=== PATIENT | female | born 1985 | race Caucasian/White ===

== ENCOUNTER 2021-01-10 12:26 | Outpatient (REF) | payer MEDICAID, SELFPAY ==
--- NOTE | ~2021-01-10 | XR_ITS ---
EXAMINATION: XR ELBOW, LEFT CLINICAL INFORMATION: Left elbow pain. COMPARISON: None TECHNIQUE: AP, lateral, and oblique views of the left elbow. FINDINGS: The bones and soft tissues are normal. No fracture or joint effusion. Alignment is anatomic. Joint spaces are maintained. XR/XR elbow LT 2V IMPRESSION: Unremarkable left elbow.
== END 2021-01-10 12:27 | disposition home or self-care (01) ==
LOC: HO.XRAY 12:26
PROVIDERS: PCP Registered Nurse; Visit Provider Registered Nurse
DX: M25.522 Pain in left elbow (principal)
CPT/HCPCS: 73070

== ENCOUNTER 2021-07-15 15:59 | Emergency (ER) | payer MEDICAID, SELFPAY ==
[2021-07-15 16:30] VITALS: BP 108/62; PULSE 82; RESP 18; TEMP 36.3; O2SAT 98; BMI 22.2
== END 2021-07-15 16:47 | disposition left against medical advice (07) ==
PROVIDERS: Emergency Provider Emergency Medicine; PCP Registered Nurse
DX: J02.9 Acute pharyngitis, unspecified (principal)
CPT/HCPCS: 99281; 99282

== ENCOUNTER 2022-07-21 11:21 | Outpatient (REF) | payer MEDICAID, SELFPAY ==
--- NOTE | ~2022-07-21 | XR_ITS ---
EXAMINATION: XR CHEST CLINICAL INFORMATION: Cough COMPARISON: 06/30/2019 TECHNIQUE: 2 views of the chest were obtained. FINDINGS: No significant abnormality is noted involving the heart, lungs, mediastinum, bony thorax or soft tissues. XR/XR chest 2V IMPRESSION: Unremarkable examination.
== END 2022-07-21 11:22 | disposition home or self-care (01) ==
LOC: HO.XRAY 11:21
PROVIDERS: Visit Provider Family Medicine
DX: R05.1 Acute cough (principal)
CPT/HCPCS: 71046

== ENCOUNTER 2022-07-29 | Emergency (ER) | payer MEDICAID, SELFPAY ==
--- NOTE | ~2022-07-29 | XR_ITS ---
EXAMINATION: XR CHEST CLINICAL INFORMATION: Chest pain COMPARISON: 07/21/2022 TECHNIQUE: 2 views of the chest were obtained. FINDINGS: Lung volumes are symmetric. There is patchy airspace opacity at the left lung base, suspicious for developing consolidation in the lingula. Right lung appears well-aerated. No evidence of pneumothorax or pleural effusion. The cardiomediastinal contour is unremarkable. No acute osseous findings are seen. XR/XR chest 2V IMPRESSION: Patchy left basilar airspace opacity suspicious for lingular pneumonia in the proper clinical setting.
--- NOTE | 2022-07-29 00:06 | ECG_ITS ---
Test Reason : CHEST PAIN Blood Pressure : / mmHG Vent. Rate : 105 BPM Atrial Rate : 105 BPM P-R Int : 134 ms QRS Dur : 076 ms QT Int : 336 ms P-R-T Axes : 072 079 037 degrees QTc Int : 444 ms Sinus tachycardia Nonspecific T wave abnormality Abnormal ECG No previous ECGs available Referred By: Generic ED Physician Electronically Signed By:Carlos Kim
[2022-07-29 00:24] VITALS: BP 105/65; PULSE 106; RESP 16; TEMP 37.2; O2SAT 98; BMI 20.4
[2022-07-29 00:25] LABS: Hematocrit 34.9 % (37.0-47.0); Hemoglobin 11.9 g/dl (12.0-16.0); Mean Corpuscular HGB Conc 34.1 g/dl (31.0-35.0); Mean Corpuscular Volume 87.9 fL (80.0-98.0); Platelet Count 393 X10*3/uL (160-400); Red Blood Count 3.97 X10*6/uL (4.20-5.50); Red Cell Distribution Width 12.2 % (11.0-16.0); White Blood Count 18.8 X10*3/uL (4.8-10.8)
[2022-07-29 00:50] LABS: Alanine Aminotransferase 57 U/L (0-31); Albumin Level 4.1 g/dL (3.5-5.0); Alkaline Phosphatase 108 U/L (39-117); Anion Gap 16 (12-20); Aspartate Amino Transferase 46 U/L (5-31); Bilirubin Direct 0.2 mg/dL (0.0-0.5); Blood Urea Nitrogen 8 mg/dL (9-16); Calcium 9.2 mg/dL (8.4-10.2); Carbon Dioxide 28 mmol/L (22-29); Chloride 100 mmol/L (96-108); Creatinine Clr Calc Pharmacy 87.3; Estimated Glomerular Filt Rate > 60; Glucose Random 95 mg/dL (60-115); Lipase 24 U/L (8-78); Potassium 3.9 mmol/L (3.3-5.1); Sodium 140 mmol/L (135-145); Total Protein 7.7 g/dL (6.5-8.0)
[2022-07-29 01:17] LABS: Bilirubin Total 0.5 mg/dL (0.0-1.0)
[2022-07-29 01:31] LABS: Troponin-I High Sensitivity < 3.5 ng/L (<3.5-17.0)
[2022-07-29 03:25] VITALS: BP 100/62; PULSE 94; RESP 18; TEMP 36.6; O2SAT 100
[2022-07-29 04:30] LABS: HCG Quantitative < 2 mIU/mL
--- NOTE | 2022-07-29 04:51 | ED_ITS ---
HPI - General Adult General Chief complaint: General Medical Stated complaint: chest pain Time Seen by Provider: 07/29/22 02:56 Source: patient Mode of arrival: ambulatory History of Present Illness HPI narrative: 37-year-old female comes in with left-sided chest pain that worsened at approximately 20:00 last night, denies any nausea/vomiting/fever but reports chills and states that it is stabbing in nature and located open cuts behind her left breast?. She denies any change in pain with deep inspiration or movement and denies any recent cough or sore throat. Related Data Previous Rx's Medication Instructions Recorded doxycycline hyclate 100 mg capsule 100 mg PO BID 7 days #14 caps 07/29/22 Allergies Allergy/AdvReac Type Severity Reaction Status Date / Time No Known Allergies Allergy Unverified 04/26/20 17:17 Review of Systems Review of Systems: Pertinent positives and negatives as stated in HPI 10 point review of systems is otherwise negative. PMFSH Past Medical History Source: nursing notes reviewed Social History Social History Advance Directives: No Physical Exam ED Vital Signs: Vital Signs - 24 hr 07/29/22 00:24 07/29/22 03:25 Temperature 99 F 97.9 F Pulse Rate 106 H 94 Respiratory Rate 16 18 Blood Pressure 105/65 100/62 Pulse Oximetry 98 100 Oxygen Delivery Method Room Air Room Air BMI result Body Mass Index 20.4 VITAL SIGNS: Reviewed. GENERAL: Well developed, well nourished, in no acute distress. HEAD: Normocephalic/atraumatic EYES: PERRLA, EOMI EARS: Ext canals without abnormality, TMs non-bulging and non-erythematous NOSE: Nares patent bilateral OROPHARYNX: no oral lesions noted, posterior pharynx clear and non-erythematous without noted tonsillar enlargement/erythema/exudates NECK: Supple, no adenopathy LUNGS: Normal breath sounds. No adventitious sounds or accessory muscle use. SpO2<100>; CHEST WALL: No crepitus, no tenderness on palpation or deformity noted CARDIOVASCULAR: Regular rate and rhythm without noted murmurs, no JVD or lower extremity edema. ABDOMEN: Soft, non-tender, non-distended with bowel sounds. MUSCULOSKELETAL: No tenderness, deformities, or effusions noted on gross ins pection. EXTREMITIES: No cyanosis, clubbing or edema. SKIN: Inspection of the skin reveals no rashes NEUROLOGIC: Alert and oriented x 4. Strength and sensation to light touch were grossly intact x 4. Course Course Course Narrative: 37-year-old female with history and clinical presentation initially felt to be possible costochondritis and after review lab work there is a noted leukocytosis without significant fever and patient is oxygenating well and on obtaining chest x-ray there is evidence to suggest a left lingular pneumonia, troponin is negative and chemistries otherwise are without significant finding. Patient received initial dose of doxycycline and then was informed of all results and discharged home with remaining course of antibiotics. She also received Tylenol and ibuprofen here in the emergency room. She is neither tachypneic nor tachycardic and continues to oxygenating well on room air. Medical Decision Making Lab Data Result Diagrams: 07/29/22 00:19 07/29/22 00:19 Labs: Lab Results 07/29/22 07/29/22 07/29/22 Range/Units 00:19 00:19 00:19 WBC 18.8 H (4.8-10.8) X10*3/uL RBC 3.97 L (4.20-5.50) X10*6/uL Hgb 11.9 L (12.0-16.0) g/dl Hct 34.9 L (37.0-47.0) % MCV 87.9 (80.0-98.0) fL MCH 30.0 (27.0-33.0) pg MCHC 34.1 (31.0-35.0) g/dl RDW 12.2 (11.0-16.0) % Plt Count 393 (160-400) X10*3/uL MPV 9.0 L (9.4-12.3) fL Absolute Nucleated RBC 0.000 (0.0-0.012) X10*3/uL Nucleated RBC % (auto) 0.0 (0.0-0.2) /100WBC Sodium 140 (135-145) mmol/L Potassium 3.9 (3.3-5.1) mmol/L Chloride 100 (96-108) mmol/L Carbon Dioxide 28 (22-29) mmol/L Anion Gap 16 (12-20) BUN 8 L (9-16) mg/dL Creatinine 0.59 (0.5-1.4) mg/dL Estim Creat Clear Calc 87.3 Estimated GFR > 60 Random Glucose 95 (60-115) mg/dL Calcium 9.2 (8.4-10.2) mg/dL Total Bilirubin 0.5 (0.0-1.0) mg/dL Direct Bilirubin 0.2 (0.0-0.5) mg/dL AST 46 H (5-31) U/L ALT 57 H (0-31) U/L Alkaline Phosphatase 108 (39-117) U/L Troponin I High Sens < 3.5 (<3.5-17.0) ng/L Total Protein 7.7 (6.5-8.0) g/dL Albumin 4.1 (3.5-5.0) g/dL Lipase 24 (8-78) U/L Beta HCG, Quant < 2 mIU/mL Independent Interpretation I performed an independent interpretation of an: EKG Interpretation: Sinus tachycardia, HR-105, no STEMI, there is nonspecific T-wave abnormality, KS/QRS/QTC is within normal limits. Discharge Plan Discharge Clinical Impression: Pneumonia Patient Disposition: Home, Self-Care Instructions: Community Acquired Pneumonia (ED) Additional Instructions: 1. Complete todo el ciclo de antibi?ticos seg?n lo indicado. 2. Recomendar Tylenol/ibuprofeno de venta kamran seg?n sea necesario para controlar el dolor. 3. Realice un seguimiento con burgos proveedor de atenci?n primaria en los pr?ximos 2 a 3 d?as para shavon reevaluaci?n adicional del manejo ambulatorio. Regrese a la justice de emergencias si los s?ntomas empeoran. 1. Complete the entire course of antibiotics as ordered. 2. Recommend [id number]-[id number] Tylenol/ibuprofen as needed for pain control. 3. Follow-up with your primary care provider next 2-3 days for re-evaluation further outpatient management. Return to the ER for worsening symptoms. Prescriptions: New doxycycline hyclate 100 mg capsule 100 mg PO BID 7 Days Qty: 14 0RF Print Language: Serbian
[2022-07-29] MEDS: Acetaminophen 325 MG TABLET 975 MG PO (06:12)
[2022-07-29] MEDS: Ibuprofen 400 MG TABLET PO (06:13)
[2022-07-29] MEDS: Doxycycline Monohydrate 100 MG CAPSULE PO (06:13)
--- NOTE | 2022-07-29 06:26 | PC.NURSE ---
PT A&O,NO SOB OR CHEST PAIN. PT MEDICATED AT THIS CHARGE. DISCHARGE INSTRUCTIONS GIVEN AND REVIEWED WITH
== END 2022-07-29 06:27 | disposition home or self-care (01) ==
PROVIDERS: Emergency Provider Student in an Organized Health Care Education/Training Program
DX: J18.9 Pneumonia, unspecified organism (principal); R00.0 Tachycardia, unspecified
CPT/HCPCS: 36415; 71046; 80053; 82248; 83690; 84484; 84702; 85027; 93005; 99283; 99284

== ENCOUNTER 2022-09-26 13:46 | Outpatient (REF) | payer MEDICAID, SELFPAY ==
--- NOTE | ~2022-09-26 | US_ITS ---
EXAMINATION: US PELVIS CLINICAL INFORMATION: Pelvic and perineal pain. LMP 09/23/2022. COMPARISON: Pelvic ultrasound 12/27/2010. TECHNIQUE: Ultrasound of the pelvis is performed using both transabdominal and transvaginal transducers along with Doppler. Transvaginal imaging is performed due to inadequate visualization transabdominally. FINDINGS: Uterus: The uterus is anteverted and measures 7.9 x 4.5 x 5.7 cm. Scarring from prior noted. The double wall endometrial thickness is 5 mm. The uterus is smooth in contour and has normal myometrial echogenicity. No visible fibroid. Nabothian cysts are identified in the cervix. Adnexa: Both ovaries are visualized. There is normal color flow to the adnexa. Small volume of free fluid surrounding the right ovary. Right ovary measures 3.9 x 1.8 x 2.5 cm. Left ovary measures 2.6 x 2 x 2.4 cm. Engorged vasculature is noted in the left adnexal region. US/US pelvic and transvaginal IMPRESSION: 1. There is preserved flow to both ovaries at the moment of this examination. Ovaries are fairly symmetric in size. 2. Small volume of free fluid surrounding the right ovary is nonspecific but likely physiologic. 3. Engorged vasculature in the left adnexal region which could be seen with pelvic congestion syndrome in the appropriate clinical context.
== END 2022-09-26 13:47 | disposition home or self-care (01) ==
LOC: HO.US 13:46
PROVIDERS: PCP Advanced Practice Midwife; Visit Provider Advanced Practice Midwife
DX: R10.2 Pelvic and perineal pain (principal); N94.6 Dysmenorrhea, unspecified
CPT/HCPCS: 76830; 76856

== ENCOUNTER 2022-12-24 18:33 | Emergency (ER) | payer MEDICAID, SELFPAY ==
[2022-12-24 18:40] VITALS: BP 105/68; PULSE 81; RESP 18; TEMP 37.2; O2SAT 100; BMI 25.6
--- NOTE | 2022-12-24 18:40 | ED.EAR ---
HPI - Ear Problem General Chief complaint: Ear Problems Stated complaint: left ear pain Time Seen by Provider: 12/24/22 19:22 Source: patient Mode of arrival: ambulatory Limitations: no limitations History of Present Illness HPI Narrative: 37 yo female presents to the ER for evaluation of right ear pain and decreased hearing for the last 2 days. She also reports increased nasal congestion, runny nose. No fever or chills. No known sick contacts. No sob, cough or chest pain. No drainage from the ear. She had left over amoxicillin which she took 2 of before coming in to the ER. Complaint: ear pain and decreased hearing Location: right ear Duration: constant Severity: moderate Relieving factors: NDAIDs Exacerbating factors: chewing, position of head and palpation Context: recent illness Discharge from ear: no Associated symptoms ear: decreased hearing Treatment prior to arrival: oral analgesic Related Data Previous Rx's Medication Instructions Recorded doxycycline hyclate 100 mg capsule 100 mg PO BID 7 days #14 caps 07/29/22 amoxicillin 875 mg-potassium 1 tab PO BID #20 tabs 12/24/22 clavulanate 125 mg tablet fluticasone propionate 50 2 spray intranasal DAILY #16 grams 12/24/22 mcg/actuation nasal spray,suspension (24 Hour Allergy Relief) ibuprofen 600 mg tablet 600 mg PO Q8H PRN fever or pain 12/24/22 #20 tabs Allergies Allergy/AdvReac Type Severity Reaction Status Date / Time No Known Allergies Allergy Unverified 04/26/20 17:17 Review of Systems Review of Systems: Yes all other systems are reviewed and are negative [facility] Social History Social History Advance Directives: No Advance Directives Information Provided: No Physical Exam Vital Signs: Vital Signs: Last Vital Signs Temp 98.9 F 12/24/22 18:40 Pulse 81 12/24/22 18:40 Resp 18 12/24/22 18:40 BP 105/68 12/24/22 18:40 Pulse Ox 100 12/24/22 18:40 O2 Del Method Room Air 12/24/22 18:40 BMI result Body Mass Index 25.6 Appearance: Alert. Oriented X3. No acute distress. HEENT: normal external inspection. normal EAC and TM on the left. right EAC normal with erythema and effusion of the right TM. no mastoid tenderness bilaterally. nasal discharge is clear with erythematous turbinates. normal oropharynx. CVS: Normal heart rate and rhythm. Pulses normal. Respiratory: No respiratory distress. Skin: Skin warm and dry. Normal skin color. Normal skin turgor. No rashes. Extremities: normal inspection, no peripheral edema. Neuro: Oriented X 3. No motor deficit. No sensory deficit. Medical Decision Making Medical Decision Making [facility] Narrative: 37 yo female presenting to the ER for evaluation of right ear pain and decreased hearing x2 days. Exam c/w otitis media. Will start abx and NSAIDs for pain control. stable for d/c home. dx and tx d/w patient, all questions answered. Differential Diagnosis Differential Diagnoses: The differential diagnosis associated with the presentation includes acute otitis media, otitis externa, sinus infection, TM perforation, effusion, mastoiditis Lab Data [facility] Lab Attestation statement: I reviewed the patient's lab results. Labs: Lab Results 12/24/22 Range/Units 18:48 COVID-19 ([facility]) Negative (Negative) COVID-19 Clin Com See Note External Record Review External record reviewed: Outpatient record and Prior outpatient labs Prescription Management I considered prescription management with: Pain Medication and Antibiotic Critical Care Time Critical Care Time Critical Care Time: No Discharge Plan Discharge Clinical Impression: Otitis media Patient Disposition: Home, Self-Care Instructions: Ear Infection (ED) Additional Instructions: take the prescribed antibiotic as directed complete the entire course and do not miss any doses take the other medications prescribed as directed rest and stay hydrated drink plenty of fluids follow up with your doctor as needed If you develop new or worsening symptoms call 911 or come back to the ER for further evaluation. jose el antibi?mattie prescrito seg?n las indicaciones complete todo el curso y no se pierda ninguna dosis jose los otros medicamentos recetados seg?n las indicaciones descansa y mantente hidratado beber mucho l?quido seguimiento con burgos m?dico seg?n sea necesario Si desarrolla s?ntomas nuevos o que empeoran, llame al 911 o regrese a la justice de emergencias para shavon evaluaci?n adicional. Prescriptions: New amoxicillin-pot clavulanate 875-125 mg tablet 1 tab PO BID Qty: 20 0RF ibuprofen 600 mg tablet 600 mg PO Q8H PRN (Reason: fever or pain) Qty: 20 0RF fluticasone propionate [24 Hour Allergy Relief] 50 mcg/actuation spray,suspension 2 spray intranasal DAILY Qty: 16 0RF Rx Instructions: administer into each nostril No Action doxycycline hyclate 100 mg capsule 100 mg PO BID 7 Days Qty: 14 0RF Stand Alone Forms: Work/School Release Interventions: ED Discharge Assessment Last Done: 12/24/22 19:38 Print Language: Tongan
[2022-12-24 19:06] LABS: COVID-19 Test Negative (Negative); IDNOW Serial# 08D9AD1C
== END 2022-12-24 19:40 | disposition home or self-care (01) ==
PROVIDERS: Physician Assistant; Emergency Provider Emergency Medicine; PCP Advanced Practice Midwife
DX: H66.91 Otitis media, unspecified, right ear (principal); H92.02 Otalgia, left ear; Z20.822 Contact with and (suspected) exposure to COVID-19; Z20.828 Contact with and (suspected) exposure to other viral communicable diseases; Z79.899 Other long term (current) drug therapy
CPT/HCPCS: 87635; 99282; 99283

== ENCOUNTER 2023-04-18 04:26 | Emergency (ER) | payer MEDICAID, SELFPAY ==
--- NOTE | ~2023-04-18 | CT_ITS ---
EXAMINATION: CT ABDOMEN AND PELVIS WITHOUT CONTRAST CLINICAL INFORMATION: Diffuse abdominal pain and nausea, nausea and vomiting. COMPARISON: Ultrasound kidneys 08/14/2016. TECHNIQUE: Multidetector volumetric imaging was performed from the superior aspect of the liver through the pubic symphysis. Sagittal and coronal reformatted images were obtained on the technologist's workstation. This CT examination was performed using dose optimization techniques as appropriate, variously including the following: *Automated exposure control *Adjustment of mA and/or kV according to patient size (this includes techniques or standardized protocols for targeted exams where dose is matched to indication/reason for exam; i.e. extremities or head) *Use of iterative reconstruction technique DLP: 292 mGy-cm FINDINGS: LUNG BASES: The visualized lung bases are unremarkable. LIVER, GALLBLADDER, AND BILIARY TREE: The liver is normal in size, shape, and attenuation. No focal hepatic lesion or biliary ductal dilatation is present. The gallbladder is unremarkable with no evidence of radiopaque gallstones, gallbladder wall thickening, or obvious pericholecystic inflammatory changes. PANCREAS: Unremarkable. SPLEEN: Unremarkable. ADRENAL GLANDS: Unremarkable. KIDNEYS AND URETERS: The kidneys are normal in size, shape, and attenuation. No hydronephrosis, hydroureter, or calculi seen. No perinephric stranding. BLADDER: Unremarkable. GASTROINTESTINAL TRACT: There is diffuse mural thickening involving the entire sigmoid, descending and left transverse colon with minimal fat stranding in the distal descending and sigmoid colon suggestive of colitis. There is moderate stool in the right colon. The ileocecal junction, small bowel loops are normal. The appendix appears normal caliber. Minimal free fluid. ABDOMINAL WALL: No significant hernia is appreciated. LYMPH NODES: Normal. VASCULAR: Unremarkable. PELVIS: Uterus is anteverted with punctate calcifications. No free fluid. No abnormal pelvic or inguinal abnormal size lymph nodes. There is minimal free fluid in the pelvis OSSEOUS STRUCTURES: No aggressive lytic or sclerotic process seen. CT/CT abdomen pelvis wo IV con IMPRESSION: Diffuse mural thickening involving the entire sigmoid, descending and left transverse colon with minimal fat stranding in the distal descending and sigmoid colon suggestive of colitis. There is minimal free fluid in the pelvis. Fleischner guidelines were followed.
[2023-04-18 04:37] VITALS: BP 122/67; PULSE 72; RESP 20; TEMP 36.7; O2SAT 96; BMI 27.7
[2023-04-18 04:48] VITALS: BP 122/67; PULSE 72; RESP 20; TEMP 36.7; O2SAT 98
[2023-04-18 04:54] LABS: Hemoglobin 14.1 g/dl (12.0-16.0); Mean Corpuscular HGB Conc 35.3 g/dl (31.0-35.0); Mean Corpuscular Hemoglobin 30.1 pg (27.0-33.0); Mean Corpuscular Volume 85.5 fL (80.0-98.0); Mean Platelet Volume 8.9 fL (9.4-12.3); Platelet Count 342 X10*3/uL (160-400); Red Blood Count 4.68 X10*6/uL (4.20-5.50); Red Cell Distribution Width 12.2 % (11.0-16.0); White Blood Count 10.9 X10*3/uL (4.8-10.8)
[2023-04-18 05:11] LABS: Alanine Aminotransferase 22 U/L (0-31); Albumin Level 4.3 g/dL (3.5-5.0); Alkaline Phosphatase 89 U/L (39-117); Anion Gap 15 (12-20); Aspartate Amino Transferase 22 U/L (5-31); Bilirubin Total 0.4 mg/dL (0.0-1.0); Blood Urea Nitrogen 16 mg/dL (9-16); Calcium 10.3 mg/dL (8.4-10.2); Carbon Dioxide 25 mmol/L (22-29); Chloride 105 mmol/L (96-108); Creatinine Clr Calc Pharmacy 77.6; Estimated Glomerular Filt Rate > 60; Glucose Random 136 mg/dL (60-115); Potassium 3.7 mmol/L (3.3-5.1); Sodium 141 mmol/L (135-145); Total Protein 7.9 g/dL (6.5-8.0)
--- OUTSIDE RECORDS SUMMARY | 2023-04-18 05:23 | XMS_ITS | Patient Health Record ---
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 Role Phone CASIMIRO HELTON Unavailable Unavailable ENCOUNTERS from 1985 to 2023-04-18 Encounter Location Date Provider Diagnosis [facility] [address] [place] [phone] Jun, [id number] SUNITHA [facility] [address] [phone] Jun, CASIMIRO HELTON SOCIAL HISTORY Sex Assigned At : Social History Observation Description Sex Assigned At Unknown REASON FOR REFERRAL No Information REASON FOR VISIT No Information MENTAL STATUS No Information PLAN OF TREATMENT No Information Insurance Providers Payer Name Payer Address Payer Phone Insured Name Patient Relationship to Insured Coverage Start Date Coverage End Date Subscriber Number Group Number [place] Medicaid Standard [id number] [facility] [id number] Tori Crystal Self - patient is the insured
--- OUTSIDE RECORDS SUMMARY | 2023-04-18 05:23 | XMS_ITS | Continuity of Care Document ---
Author Name Unknown Organization [facility] Address [address] [place] [address]- Care Team Providers Care Sales Operations Manager Name Role Phone Not on Staff, PCP Primary Care Physician Unavail able [place] [facility] [place]/22 [facility] [address] [place] [address]- Attending Physician: Nita Dowd Admitting Physician: AdmNita bruce Referring Physician: AdmtrNita Allergies, Adverse Reactions, Alerts No Known Medication Allergies Medications Albuterol (Eqv-ProAir HFA) Inhalation, Every 6 hours, 0 Refills, Maintenance, 10/23/22 13:23:00 EDT, Partial fill upon patientrequest if the prescription is for a schedule II opioid drug. Start Date: 10/23/22 Status: Ordered Collagen 0 Refills, Maintenance, 10/23/22 13:24:00 EDT, Partial fill upon patient request if the prescription is for a schedule II opioid drug. Start Date: 10/23/22 Status: Ordered ibuprofen 200 mg oral capsule 2 capsule = 400 mg, By Mouth, Every 4 hours, PRN for fever, # 120 capsule, 0 Refills, Maintenance, 10/23/22 13:23:00 EDT, Capsule, Partial fill upon patient request if the prescription is for a schedule II opioid drug. Start Date: 10/23/22 Status: Ordered mirtazapine 15 mg oral tablet 1 tablet = 15 mg, By Mouth, Daily at bedtime, 0 Refills, Maintenance, 10/23/22 13:23:00 EDT, Partial fill upon patient request if the prescription is for a schedule II opioid drug. Start Date: 10/23/22 Status: Ordered Vitamin C 500 mg oral tablet 1 tablet = 500 mg, By Mouth, Daily, # 30 tablet, 0 Refills, Maintenance, 10/23/22 13:24:00 EDT, Tablet, Partial fill upon patient request if the prescription is for a schedule II opioid drug. Start Date: 10/23/22 Status: Ordered Vitamin D3 50 mcg (2000 intl units) oral tablet, chewable 1 tablet = 50 mcg, By Mouth, Daily, 0 Refills, Maintenance, 10/23/22 13:22:00 EDT, Partial fill upon patient request if the prescription is for a schedule II opioid drug. Start Date: 10/23/22 Status: Ordered Social History Social History Type Response Smoking Status Former smoker, quit more than 30 days ago entered on: 10/23/22 Sex Patient Care team information Care Team Personnel Name: Not on Staff, PCP Position: S Physician (General Medicine) Member Role: PCP Care Team Related Persons Name: AYAKA LAMBERTDEE Address: [place] [address]
--- NOTE | 2023-04-18 06:44 | ED.ABDPAIN ---
HPI - Abdominal Pain General Chief Complaint: Abdominal Pain Stated Complaint: abd pain Time Seen by Provider: 04/18/23 06:41 Source: patient Mode of arrival: ambulatory Limitations: no limitations History of Present Illness HPI narrative: 37 yo female with no significant PMHx presents to the ED today for complaint of severe abdominal pain, N/V, and diarrhea s/p eating dinner last night. Reports eating a baked potatoe last night. Woke up with diffuse abdominal pain, nausea and vomiting around 0400 this morning. Endorses one episode of loose stools in ED. Currently on amox for strep throat. with similar symptoms since eating the same dinner. Denies fever, chills, anorexia, chest pain, SOB, constipation, flank pain, hematemesis, hematochezia, melena. Related Data Previous Rx's Medication Instructions Recorded doxycycline hyclate 100 mg capsule 100 mg PO BID 7 days #14 caps 07/29/22 amoxicillin 875 mg-potassium 1 tab PO BID #20 tabs 12/24/22 clavulanate 125 mg tablet fluticasone propionate 50 2 spray intranasal DAILY #16 grams 12/24/22 mcg/actuation nasal spray,suspension (24 Hour Allergy Relief) ibuprofen 600 mg tablet 600 mg PO Q8H PRN fever or pain 12/24/22 #20 tabs amoxicillin 875 mg-potassium 1 tab PO BID 7 days #14 tabs 04/18/23 clavulanate 125 mg tablet ketorolac 10 mg tablet 10 mg PO Q8H 5 days #15 tabs 04/18/23 ondansetron 4 mg disintegrating 4 mg PO DAILY PRN nausea and 04/18/23 tablet vomiting 5 days #10 tabs Allergies Allergy/AdvReac Type Severity Reaction Status Date / Time No Known Allergies Allergy Unverified 04/26/20 17:17 Review of Systems Review of Systems Constitutional: No fever, No chills, No fatigue, No malaise, No weight loss, No night sweats ENT/Mouth: No ear pain, No hearing loss,? No nasal congestion, No sinus pain, No rhinorrhea, No sore throat, No hoarseness, No swallowing difficulty Eyes: No eye pain, No swelling, No redness, No vision changes, No foreign body, No discharge Cardio: No chest pain, No palpitations, No dyspnea on exertion, No orthopnea, No edema Respiratory: No SOB, No cough, No sputum, No wheezing, No dyspnea, No hemoptysis, GI: + nausea, + vomiting, No hematemesis, + abdominal pain, + diarrhea, No constipation, No hematochezia, No melena : No irregular bleeding, No dysuria, No frequency, No urgency, No hesitancy, No hematuria, No flank pain, No urinary flow changes, No urinary incontinence or retention MSK: No back pain, No neck pain, No joint pain, No myalgias Skin: No skin lesions, No rashes Neuro: No weakness, No numbness, No paresthesias, No LOC, No dizziness, No headache Yes all other systems are reviewed and are negative [facility] Past Medical History Attestation statement: The following information was validated with the patient. Source: old records reviewed and nursing notes reviewed Social History Social History Alcohol intake: never Smoked in Last 30 Days: No Use of substances other than those prescribed or required for medical reasons: Yes Substance Use Type: Marijuana Last Used Substance: Hours (ago) Advance Directives: No Advance Directives Information Provided: Yes Patient : No Physical Exam ED Vital Signs: Vital Signs - 24 hr 04/18/23 04:37 04/18/23 04:48 04/18/23 06:47 Temperature 98.1 F 98.1 F 98.1 F Pulse Rate 72 72 71 Respiratory Rate 20 20 18 Blood Pressure 122/67 122/67 121/80 Pulse Oximetry 96 98 98 Oxygen Delivery Method Room Air Room Air Room Air BMI result Body Mass Index 27.7 General: Nontoxic appearing, in obvious discomfort, holding stomach with emesis bag in hand. Skin: Warm and dry. No rashes or lesions. Head: Normocephalic, atraumatic. EENT: Conjunctiva clear. Sclera is anicteric. PERRLA. EOM intact. Nasal septum is midline. Moist mucous membranes. Controlling secretions. Talking in complete sentences. Neck: Supple without LAD. Normal ROM. Trachea midline.? Cardiac: Chest wall symmetric. Regular rate and rhythm. S1 and S1 appreciated. No MRG. No JVD. Lungs: CTA bilaterally. No rales, rhonchi, or wheezes. Normal respiratory effort without accessory muscle use. Abdomen: No visible lesions or scars. Soft, nondistended, diffusely tender to palpation without rebound or guarding. Normoactive BSx4. No masses, hepatomegaly, or splenomegaly.?No CVAT. Ext: Upper and lower extremities atraumatic. Strength 5/5 throughout. Capillary refill <2 seconds in all extremities. Pulses 2+ equal and bilateral. No edema, cyanosis, or clubbing. Neuro: Alert and oriented x3. Normal speech. CN 2-12 grossly intact. Strength 5/5 intact throughout.?Sensation intact to light touch.? Neurovascular intact distally. Course Course Course Narrative: 0700-- Mild leukocytosis without left shift, likely secondary to vomiting. No anemia. Chemistry without acute electrolyte abnormalities requiring intervention. 0800-- Vital signs still stable. CT abd/pelvis showing diffuse mural thickening involving the entire sigmoid, descending and left transverse colon suggestive of colitis. On re-evaluation, patient's symptoms have improved with toradol and zofran. Used shared decision making to determine patient's disposition. Patient to be d/c home with new antibiotic script, zofran, toradol and PCP/GI follow up. Advised patient to stop her current course of amoxicillin and start augmenting for colitis coverage. Discussed worrisome signs and symptoms and when to return to the ED. All questions answered. Patient agreeable with plan. Stable for discharge home. Medical Decision Making Medical Decision Making [facility] Narrative: 37 yo female with recent history of strep throat on abx presents to the ED today for complaint of severe abdominal pain, N/V, and diarrhea s/p eating dinner last night. Vital signs stable. Abdomen without visible scars or lesions, soft, nondistended, diffusely tender to palpation without rebound or guarding, normoactive BS x4, no palpable masses, hepatomegaly or splenomegaly. No CVAT. Clinical concern for gastroenteritis vs viral syndrome vs gastritis vs electrolyte abnormalities vs dehydration vs colitis. Low suspicion for appendicitis, cholecystitis, pancreatitis, diverticulosis/litis, SBO, ischemic bowel, acute abdomen. Plan: labs, imaging, pain control Differential Diagnosis Differential Diagnoses: The differential diagnosis associated with the presentation includes Clinical concern for gastroenteritis vs viral syndrome vs gastritis vs electrolyte abnormalities vs dehydration vs colitis. Low suspicion for appendicitis, cholecystitis, pancreatitis, diverticulosis/litis, SBO, ischemic bowel, acute abdomen. Lab Data [facility] Lab Attestation statement: I reviewed the patient's lab results. See above course narrative. 04/18/23 04:48 04/18/23 04:48 Labs: Lab Results 04/18/23 Range/Units 04:48 WBC 10.9 H (4.8-10.8) X10*3/uL RBC 4.68 (4.20-5.50) X10*6/uL Hgb 14.1 (12.0-16.0) g/dl Hct 40.0 (37.0-47.0) % MCV 85.5 (80.0-98.0) fL MCH 30.1 (27.0-33.0) pg MCHC 35.3 H (31.0-35.0) g/dl RDW 12.2 (11.0-16.0) % Plt Count 342 (160-400) X10*3/uL MPV 8.9 L (9.4-12.3) fL Absolute Nucleated RBC 0.000 (0.0-0.012) X10*3/uL Nucleated RBC % (auto) 0.0 (0.0-0.2) /100WBC Sodium 141 (135-145) mmol/L Potassium 3.7 (3.3-5.1) mmol/L Chloride 105 (96-108) mmol/L Carbon Dioxide 25 (22-29) mmol/L Anion Gap 15 (12-20) BUN 16 (9-16) mg/dL Creatinine 0.78 (0.5-1.4) mg/dL Estim Creat Clear Calc 77.6 Estimated GFR > 60 Random Glucose 136 H (60-115) mg/dL Calcium 10.3 H D (8.4-10.2) mg/dL Total Bilirubin 0.4 (0.0-1.0) mg/dL AST 22 (5-31) U/L ALT 22 (0-31) U/L Alkaline Phosphatase 89 (39-117) U/L Total Protein 7.9 (6.5-8.0) g/dL Albumin 4.3 (3.5-5.0) g/dL Independent Interpretation I performed an independent interpretation of an: CT Scan Interpretation: CT abd/pelvis showing thickening of the distal colon, agree with radiologist's inerpretation. Radiology Impression Discussion of test interpretation with radiology: I have reviewed the radiologist's reading. Radiologist Impression: CT abdomen pelvis wo IV con IMPRESSION: Diffuse mural thickening involving the entire sigmoid, descending and left transverse colon with minimal fat stranding in the distal descending and sigmoid colon suggestive of colitis. There is minimal free fluid in the pelvis. Fleischner guidelines were followed. Independent Historian Clinical information obtained from an independent historian. History obtained from or confirmed by: Spouse () External Record Review External record reviewed: Inpatient record Prescription Management I considered prescription management with: Pain Medication and Antibiotic Core Measures AMI core measures followed: Yes Measure exclusions: not indicated Medications Administered Discontinued Medications Generic Name Dose Route Start Last Admin Trade Name Freq PRN Reason Stop Dose Admin Ketorolac Tromethamine 30 mg 04/18/23 06:55 04/18/23 07:51 Ketorolac Tromethamine 30 Mg/Ml Vial IM 04/18/23 06:56 30 mg ONCE ONE Administration Ondansetron HCl 4 mg 04/18/23 07:06 04/18/23 07:51 Ondansetron Hcl 4 Mg/2 Ml Vial IVPUSH 04/18/23 07:07 4 mg ONCE ONE Administration Discharge Plan Discharge Clinical Impression: Colitis, Gastroenteritis Patient Disposition: Home, Self-Care Instructions: Acute Nausea and Vomiting (ED), Colitis (ED) Additional Instructions: Your lab workup today was reassuring.? The CT scan of your abdominal showed inflammation of your intestine Antibiotics have been sent to your pharmacy. Take these as prescribed and do not skip any doses. Stop the antibiotics that you are currently taking and take these instead. The recommendation is rest and lots of oral hydration.? Stick to a bland diet like soup and toast while you are not feeling well.? Zofran is an anti-nausea medication. This has been sent to your pharmacy for you to take as needed for nausea.? Toradol is an antiinflammatory that has been sent to your pharamcy. Take with food. You can also try over the counter Pepto Bismol or Imodium as needed for upset stomach and diarrhea.? Follow up with your primary care provider as needed. If you develop new or worsening symptoms call 911 or come back to the ER for further evaluation. Prescriptions: New ondansetron 4 mg tablet,disintegrating 4 mg PO DAILY PRN (Reason: nausea and vomiting) 5 Days Qty: 10 0RF amoxicillin-pot clavulanate 875-125 mg tablet 1 tab PO BID 7 Days Qty: 14 0RF ketorolac 10 mg tablet 10 mg PO Q8H 5 Days Qty: 15 0RF Rx Instructions: Tolerated in ED. No Action doxycycline hyclate 100 mg capsule 100 mg PO BID 7 Days Qty: 14 0RF amoxicillin-pot clavulanate 875-125 mg tablet 1 tab PO BID Qty: 20 0RF ibuprofen 600 mg tablet 600 mg PO Q8H PRN (Reason: fever or pain) Qty: 20 0RF fluticasone propionate [24 Hour Allergy Relief] 50 mcg/actuation spray,suspension 2 spray intranasal DAILY Qty: 16 0RF Rx Instructions: administer into each nostril Referrals: [facility] [place] [facility] [Provider Group] - 5 days [facility] [Primary Care Provider] - Print Language: Maori
[2023-04-18 06:47] VITALS: BP 121/80; PULSE 71; RESP 18; TEMP 36.7; O2SAT 98
[2023-04-18] MEDS: ondansetron HCL 4 MG/2 ML VIAL IVPUSH (07:51)
[2023-04-18] MEDS: Ketorolac Tromethamine 30 MG/ML VIAL IM (07:51)
--- NOTE | 2023-04-18 09:02 | PC.NURSE ---
pt cleared for discharge. discharge instructions reviewed with pt and spouse at her bedside. iv removed. pt denies pain. ambulatory discharge.
== END 2023-04-18 09:04 | disposition home or self-care (01) ==
PROVIDERS: Emergency Provider Internal Medicine
DX: K52.9 Noninfective gastroenteritis and colitis, unspecified (principal)
CPT/HCPCS: 36415; 74176; 80053; 85027; 96372; 96374; 99284; J1885; J2405

== ENCOUNTER 2023-04-19 02:32 | Inpatient (IN) | payer MEDICAID, SELFPAY ==
[2023-04-19] VITALS (7 sets, daily range): BP systolic 90–113; BP diastolic 57–74; PULSE 66–82; RESP 16–20; TEMP 36.7–37.1; O2SAT 96–98; BMI 26.7
[2023-04-19 03:23] LABS: MANUAL DIFF FLAG NO
[2023-04-19 03:25] LABS: Basophils Absolute Auto 0.1 X10*3/uL (0.0-0.2); Basophils Percent Auto 0.4 % (0-2); Eosinophils Absolute Auto 0.2 X10*3/uL (0.0-0.4); Eosinophils Percent Auto 1.6 % (0-4); Hemoglobin 13.8 g/dl (12.0-16.0); Imm Gran Abs Auto 0.08 X10*3/uL (0.00-0.03); Imm Gran Pct Auto 0.5 % (0.0-0.4); Lymphocytes Absolute Auto 1.8 X10*3/uL (1.2-4.9); Lymphocytes Percent Auto 11.7 % (20-40); Mean Corpuscular HGB Conc 35.4 g/dl (31.0-35.0); Mean Corpuscular Hemoglobin 30.2 pg (27.0-33.0); Mean Corpuscular Volume 85.3 fL (80.0-98.0); Mean Platelet Volume 8.8 fL (9.4-12.3); Monocytes Absolute Auto 0.9 X10*3/uL (0.1-1.2); Monocytes Percent Auto 6.1 % (2-11); Neutrophils Absolute Auto 12.3 x10*3/uL (2.0-8.3); Neutrophils Percent Auto 79.7 % (45-73); Platelet Count 333 X10*3/uL (160-400); Red Blood Count 4.57 X10*6/uL (4.20-5.50); Red Cell Distribution Width 12.2 % (11.0-16.0); White Blood Count 15.4 X10*3/uL (4.8-10.8)
[2023-04-19 03:41] LABS: Alanine Aminotransferase 21 U/L (0-31); Alkaline Phosphatase 85 U/L (39-117); Anion Gap 12 (12-20); Aspartate Amino Transferase 20 U/L (5-31); Bilirubin Total 0.4 mg/dL (0.0-1.0); Blood Urea Nitrogen 17 mg/dL (9-16); Calcium 9.4 mg/dL (8.4-10.2); Carbon Dioxide 25 mmol/L (22-29); Chloride 104 mmol/L (96-108); Creatinine Clr Calc Pharmacy 83.7; Estimated Glomerular Filt Rate > 60; Glucose Random 106 mg/dL (60-115); Potassium 3.3 mmol/L (3.3-5.1); Sodium 138 mmol/L (135-145); Total Protein 7.4 g/dL (6.5-8.0)
--- NOTE | 2023-04-19 04:19 | MHC.EDTECH ---
Offered patient another pillow, Warm [place]well. Asked if she needed anything to help be more comfortable - Patient stated she is good as this time.
--- NOTE | 2023-04-19 05:43 | ED.GENADULT ---
HPI - General Adult General Chief complaint: General Medical Stated complaint: rectal bleeding? Time Seen by Provider: 04/19/23 05:41 Source: patient Mode of arrival: ambulatory Limitations: no limitations History of Present Illness HPI narrative: This is a 37 years old female was seen yesterday April 18 in the emergency department because of abdominal pain and rectal bleeding, she had a CT scan consistent with colitis she was discharged home on Augmentin she returns today because increasing abdominal pain and rectal bleeding. Onset (ago): day(s) (2) Location: abdomen Radiation: non-radiation Severity: moderate Quality: burning Pain Consistency: constant Relieving factors: none Exacerbating factors: none Associated symptoms: denies other symptoms Related Data Home Medications Medication Instructions Recorded Confirmed cholecalciferol (vitamin D3) 50 50 mcg PO DAILY 04/19/23 04/19/23 mcg (2,000 unit) capsule ibuprofen 800 mg tablet 800 mg PO Q8H PRN mild pain 04/19/23 04/19/23 Previous Rx's Medication Instructions Recorded amoxicillin 875 mg-potassium 1 tab PO BID 7 days #14 tabs 04/18/23 clavulanate 125 mg tablet Allergies Allergy/AdvReac Type Severity Reaction Status Date / Time No Known Allergies Allergy Verified 04/19/23 02:53 Review of Systems Eyes: Eyes: Reports no additional eye complaints ENT: Reports system reviewed and no additional complaints, except as documented [facility] Past Medical History [facility] Narrative: denies Social History Social History Alcohol intake: former Smoked in Last 30 Days: No Use of substances other than those prescribed or required for medical reasons: Yes Substance Use Type: Marijuana Substance Use Frequency: Occasionally Last Used Substance: Days (ago) Advance Directives: No Advance Directives Information Provided: No Physical Exam ED Vital Signs: Vital Signs - 24 hr 04/19/23 02:53 04/19/23 04:19 04/19/23 06:52 Temperature 98.8 F 98.8 F 98.1 F Pulse Rate 82 76 72 Respiratory Rate 18 16 18 Blood Pressure 110/68 106/74 113/72 Pulse Oximetry 98 96 96 Oxygen Delivery Method Room Air Room Air Room Air 04/19/23 07:54 Temperature Pulse Rate 70 Respiratory Rate 18 Blood Pressure 110/69 Pulse Oximetry 97 Oxygen Delivery Method Room Air BMI result Body Mass Index 26.7 Const General: cooperative, comfortable, no acute distress, well developed, alert, awake and Physically active Nutritional Appearance: average body habitus and well nourished Orientation/consciousness: patient oriented x3 HENMT Head: Yes normal to inspection Face and sinus: Yes normal facial exam Mouth: Normal oral and palatal mucosa present Neck Neck: Yes normal visual inspection Chest Chest palpation & inspection: normal inspection of the chest Resp Effort & Inspection: normal respiratory effort Cardio Rate: regular rate Rhythm: regular rhythm GI Inspection: Yes normal to inspection Palpation (GI): Soft to palpation, not firm and nontender Skin General skin exam: no rashes or lesions noted Lesions: no lesions Rashes: no rashes Neuro General: patient oriented x3 Cranial nerves: Yes CN's II-XII intact bilaterally Cognition (Neuro): normal cognition Gait exam (Neuro): Normal gait present Course Course Course Narrative: This is the 2nd trip to the emergency department in 24 hours she has no feeling better CT was done yesterday consistent with colitis will admit IV fluids IV antibiotic Medications Administered Generic Name Dose Route Start Last Admin Trade Name Freq PRN Reason Stop Dose Admin Dextrose/Sodium Chloride 1,000 mls @ 100 mls/hr 04/19/23 11:15 04/19/23 11:16 D5ns IVCONT 100 mls/hr .Q10H CAROL Administration Discontinued Medications Generic Name Dose Route Start Last Admin Trade Name Freq PRN Reason Stop Dose Admin Sodium Chloride 1,000 mls @ 999 mls/hr 04/19/23 05:45 04/19/23 08:39 Ns IVCONT 04/19/23 06:45 Infused .Q1H1M CAROL Infusion Sodium Chloride 1,000 mls @ 999 mls/hr 04/19/23 06:00 04/19/23 08:39 Ns IVCONT 04/19/23 07:00 Infused .Q1H1M CAROL Infusion Metronidazole 500 mg in 100 mls @ 100 mls/hr 04/19/23 06:08 04/19/23 08:39 Flagyl IV 04/19/23 07:07 Infused ONCE ONE Infusion Levofloxacin 500 mg in 100 mls @ 100 mls/hr 04/19/23 06:08 04/19/23 10:12 Levaquin IV 04/19/23 07:07 Infused ONCE ONE Infusion Morphine Sulfate 4 mg 04/19/23 05:41 04/19/23 06:21 Morphine Sulfate 4 Mg/Ml Cartridge IVPUSH 04/19/23 05:42 4 mg ONCE ONE Administration Protocol Morphine Sulfate 4 mg 04/19/23 11:04 04/19/23 11:09 Morphine Sulfate 4 Mg/Ml Cartridge IVPUSH 04/19/23 11:05 4 mg ONCE ONE Administration Protocol Ondansetron HCl 4 mg 04/19/23 05:41 04/19/23 06:21 Ondansetron Hcl 4 Mg/2 Ml Vial IVPUSH 04/19/23 05:42 4 mg ONCE ONE Administration Medical Decision Making Medical Decision Making MDM Narrative: This is a 2nd visit the in 24 hour for abdominal pain rectal bleeding/colitis, wbc's 15.4 anticipate admission Differential Diagnosis Differential Diagnoses: The differential diagnosis associated with the presentation includes Colitis/diverticulitis Admission/Observation Consideration of admission/observation: Escalation of care including admission/observation considered Consult Healthcare Provider Management of the patient was discussed with: Hospitalist Lab Data MDM Lab Attestation statement: I reviewed the patient's lab results. 04/19/23 03:19 04/19/23 03:19 Labs: Lab Results 04/19/23 04/19/23 Range/Units 03:19 06:21 WBC 15.4 H (4.8-10.8) X10*3/uL RBC 4.57 (4.20-5.50) X10*6/uL Hgb 13.8 (12.0-16.0) g/dl Hct 39.0 (37.0-47.0) % MCV 85.3 (80.0-98.0) fL MCH 30.2 (27.0-33.0) pg MCHC 35.4 H (31.0-35.0) g/dl RDW 12.2 (11.0-16.0) % Plt Count 333 (160-400) X10*3/uL MPV 8.8 L (9.4-12.3) fL Immature Gran % (Auto) 0.5 H (0.0-0.4) % Neut % (Auto) 79.7 H (45-73) % Lymph % (Auto) 11.7 L (20-40) % Woodruff % (Auto) 6.1 (2-11) % Eos % (Auto) 1.6 (0-4) % Baso % (Auto) 0.4 (0-2) % Lymph # (Auto) 1.8 (1.2-4.9) X10*3/uL Woodruff # (Auto) 0.9 (0.1-1.2) X10*3/uL Eos # (Auto) 0.2 (0.0-0.4) X10*3/uL Baso # (Auto) 0.1 (0.0-0.2) X10*3/uL Abs Immat Gran (auto) 0.08 H (0.00-0.03) X10*3/uL Absolute Neuts (auto) 12.3 H (2.0-8.3) x10*3/uL Absolute Nucleated RBC 0.000 (0.0-0.012) X10*3/uL Nucleated RBC % (auto) 0.0 (0.0-0.2) /100WBC Sodium 138 (135-145) mmol/L Potassium 3.3 (3.3-5.1) mmol/L Chloride 104 (96-108) mmol/L Carbon Dioxide 25 (22-29) mmol/L Anion Gap 12 (12-20) BUN 17 H (9-16) mg/dL Creatinine 0.71 (0.5-1.4) mg/dL Estim Creat Clear Calc 83.7 Estimated GFR > 60 Random Glucose 106 (60-115) mg/dL Calcium 9.4 D (8.4-10.2) mg/dL Total Bilirubin 0.4 (0.0-1.0) mg/dL AST 20 (5-31) U/L ALT 21 (0-31) U/L Alkaline Phosphatase 85 (39-117) U/L Total Protein 7.4 (6.5-8.0) g/dL Albumin 4.0 (3.5-5.0) g/dL Urine Color Dark Yellow Urine Appearance Clear Urine pH 5.5 (5.0-9.0) Ur Specific Kendrick >= 1.030 H (1.005-1.025) Urine Protein Trace (Neg-Trace) mg/dL Urine Glucose (UA) Negative (Negative) mg/dL Urine Ketones Trace (Negative) mg/dL Urine Blood Moderate (2+) H (Negative) Urine Nitrite Negative (Negative) Ur Leukocyte Esterase Negative (Negative) Urine RBC 3-5 H (0-2) /HPF Urine WBC 0-5 (0-5) /HPF Ur Squamous Epith Cells 11-20 (0-2) /HPF Urine Bacteria None Seen (None Seen) Hyaline Casts 0-2 (0-2) /LPF Urine Test NEGATIVE (NEGATIVE) Stool Occult Blood POSITIVE (NEGATIVE) External Record Review External record reviewed: Inpatient record ED record Prescription Management I considered prescription management with: Pain Medication Discharge Plan Discharge Clinical Impression: Colitis, Rectal bleeding Patient Disposition: Admitted As Inpatient
[2023-04-19] MEDS: 0.9 % Sodium Chloride 1,000 ML 999 ML IVCONT ×2 (06:20→08:34)
[2023-04-19] MEDS: ondansetron HCL 4 MG/2 ML VIAL IVPUSH (06:21)
[2023-04-19] MEDS: Morphine Sulfate 4 MG/ML CARTRIDGE IVPUSH ×2 (06:21→11:09)
[2023-04-19 06:27] LABS: OBS Int Ctl Valid YES; OBS1 POSITIVE (NEGATIVE)
[2023-04-19 06:28] LABS: UPreg QC Valid YES; Urine Pregnancy NEGATIVE (NEGATIVE)
[2023-04-19 06:29] LABS: Appearance Urine Clear; Color Urine Dark Yellow; Glucose Urine UA Negative (Negative); Leukocyte Esterase Urine Negative (Negative); Nitrite Urine Negative (Negative); PH 5.5 (5.0-9.0); Specific Gravity - Urine >= 1.030 (1.005-1.025); UMIC TRIGGER UACC YES; Urine Blood Moderate (2+) (Negative); Urine Ketones Trace mg/dL (Negative); Urine Protein Trace mg/dL (Neg-Trace)
[2023-04-19] MEDS: metroNIDAZOLE/NS 500 MG/100 ML PIGGYBACK 100 MG IV (06:48)
[2023-04-19 06:59] LABS: Bacteria Urine None Seen (None Seen); Hyaline Casts Urine 0-2 /LPF (0-2); WBC Urine 0-5 /HPF (0-5)
--- NOTE | 2023-04-19 07:55 | PC.NURSE ---
Alert and oriented. reports no pain at this time. IV fluids and abt running per order.
[2023-04-19] MEDS: levoFLOXacin/D5W 500 MG/100 ML PIGGYBACK 100 MG IV (08:36)
--- NOTE | 2023-04-19 08:38 | PHA.MEDREC ---
Addendum entered by Luiz Morel 04/19/23 08:38: Pt unsure when last dose of augmentin is supposed to be. Original Note: Pharmacy Consult ? Medication Reconciliation Pharmacy has completed the medication reconciliation.
--- NOTE | 2023-04-19 11:13 | P.HPHOSP_ITS ---
History of Present Illness Date of Service: 04/19/23 Chief Complaint: Abdominal pain 37-year-old female patient with no significant past medical history currently receiving amoxicillin for last 6 days for strep throat was initially seen on 04/18/2023 at [place] [facility] due to severe abdominal cramping associated with nausea vomiting and 1 episode of loose stool symptoms started few hours after eating baked potato with cheese for dinner, patient had similar symptoms since he ate the same Mary she denied fever chills, no lightheadedness dizziness hematochezia or melena, CT abdomen and pelvis was obtained that showed diffuse oral mural thickening involving entire sigmoid, descending and left transfers: With minimal fat stranding in the distal descending and sigmoid colon suggestive of colitis patient was discharged home on Augmentin but however returned back to [place] this morning due to worsening abdominal cramp and had 3 bloody bowel movements without much stool she denies associated lightheadedness or dizziness, patient labs showed worsening WBC count 15,400 electrolytes this stable patient will be admitted to [facility] for IV antibiotics since she failed outpatient by mouth antibiotic treatment. Review of Systems 2 Review of Systems: General no headache no dizziness, she + fever chills. CVS no chest pain, no palpitation. Respiratory no cough no sob no urgency, no frequency Skin no rash Musculoskeletal no pain All other system reviewed and negative PMFSH Pertinent family history: No family history of colon cancer, no history of Crohn's disease, no ulcerative colitis Social History Alcohol intake: former Smoked in Last 30 Days: No Use of substances other than those prescribed or required for medical reasons: Yes Substance Use Type: Marijuana Substance Use Frequency: Occasionally Last Used Substance: Days (ago) Advance Directives: No Advance Directives Information Provided: No Meds Allergies Allergy/AdvReac Type Severity Reaction Status Date / Time No Known Allergies Allergy Verified 04/19/23 02:53 Active Medications: Current Medications Acetaminophen (Acetaminophen 325 Mg Tablet) 650 mg PO Q6H PRN PRN Reason: Pain, Mild (Pain Scale 1-3) Dicyclomine HCl (Dicyclomine Hcl 10 Mg Capsule) 10 mg PO QIDACHS PRN PRN Reason: abdominal cramps Dextrose/Sodium Chloride (D5ns) 1,000 mls @ 100 mls/hr IVCONT .Q10H [facility] Melatonin (Melatonin 3 Mg Tablet) 3 mg PO BEDTIME PRN PRN Reason: Insomnia Morphine Sulfate (Morphine Sulfate 4 Mg/Ml Cartridge) 3 mg IVPUSH Q4H PRN; Protocol PRN Reason: Pain, Severe (Pain Scale 7-10) Ondansetron HCl (Ondansetron Hcl 4 Mg/2 Ml Vial) 4 mg IVPUSH Q8H PRN PRN Reason: Nausea and Vomiting Sodium Chloride (0.9 % Sodium Chloride Flush 3 Ml Syringe) 3 ml IVFLUSH QSHIFT [facility] Home Medications Medication Instructions Recorded Confirmed Last Taken Type cholecalciferol (vitamin D3) 50 50 mcg PO DAILY 04/19/23 04/19/23 04/18/23 History mcg (2,000 unit) capsule ibuprofen 800 mg tablet 800 mg PO Q8H PRN mild pain 04/19/23 04/19/23 Unknown History Physical Exam 2 Vital Signs and Narrative: Vital Signs: Last Vital Signs Temp 98.7 F 04/19/23 11:11 Pulse 79 04/19/23 11:11 Resp 18 04/19/23 11:11 BP 108/73 04/19/23 11:11 Pulse Ox 97 04/19/23 11:11 O2 Del Method Room Air 04/19/23 11:11 BMI result Body Mass Index 26.7 Const: Other: General awake alert x3, in acute distress due to pain. Anicteric sclera Oral mucosa moist Neck is supple no JVD. CVS regular rate rhythm, Respiratory lungs clear to auscultation, no respiratory distress, no wheeze, no rhonchi. Gastrointestinal abdomen soft, bowel sounds audible, mild diffuse tenderness to palpation, no guarding , no rigidity. Extremities no edema. Neuro nonfocal Skin no rash Psych appropriate affect Results Labs 04/19/23 03:19 04/19/23 03:19 Labs: Laboratory Results - last 24 hr 04/19/23 04/19/23 03:19 06:21 MCV 85.3 MCH 30.2 MCHC 35.4 H RDW 12.2 Plt Count 333 MPV 8.8 L Immature Gran % (Auto) 0.5 H Neut % (Auto) 79.7 H Lymph % (Auto) 11.7 L [place] % (Auto) 6.1 Eos % (Auto) 1.6 Baso % (Auto) 0.4 Lymph # (Auto) 1.8 [place] # (Auto) 0.9 Eos # (Auto) 0.2 Baso # (Auto) 0.1 Abs Immat Gran (auto) 0.08 H Absolute Neuts (auto) 12.3 H Absolute Nucleated RBC 0.000 Nucleated RBC % (auto) 0.0 Anion Gap 12 Estim Creat Clear Calc 83.7 Estimated GFR > 60 Random Glucose 106 Calcium 9.4 D Total Bilirubin 0.4 AST 20 ALT 21 Alkaline Phosphatase 85 Total Protein 7.4 Albumin 4.0 Urine Color Dark Yellow Urine Appearance Clear Urine pH 5.5 Ur Specific [place] >= 1.030 H Urine Protein Trace Urine Glucose (UA) Negative Urine Ketones Trace Urine Blood Moderate (2+) H Urine Nitrite Negative Ur Leukocyte Esterase Negative Urine RBC 3-5 H Urine WBC 0-5 Ur Squamous Epith Cells 11-20 Urine Bacteria None Seen Hyaline Casts 0-2 Urine Test NEGATIVE Stool Occult Blood POSITIVE Assessment and Plan (1) Colitis: Status: Acute Plan 37-year-old female with no significant past medical history currently receiving antibiotic for stroke throat and was started on Augmentin yesterday for acute colitis presented to [facility] due to worsening abdominal g and hematochezia with worsening WBC count therefore will be admitted to [facility] with a diagnosis of acute colitis. Acute colitis Likely food poisoning cannot rule out C diff infection due to recent antibiotic use Will check stool panel and C diff PCR Continue IV Levaquin and Flagyl started on 04/19/23 Full liquid diet, IV fluids and IV morphine, Bentyl for abdominal cramps Follow CBC and BMP, hematocrit stable Strep throat took 5 days of amoxicillin, add cough drops. DVT prophylaxis early ambulation. In my clinical judgment patient required 2 night inpatient stay for IV antibiotics for acute colitis with bloody stools. Time Spent With Patient Time: Total time managing care of this patient today ____ minutes. Quality Stroke Does the patient have a stroke diagnosis?: No VTE Prior VTE?: No VTE Risk Level:: Medical - low VTE Device Contraindication: Treatment Not Indicated VTE Drug Contraindication: Treatment Not Indicated
[2023-04-19] MEDS: Dextrose 5 % and 0.9 % NaCl 1,000 ML 100 ML IVCONT ×2 (11:16→22:34)
--- NOTE | 2023-04-19 16:38 | PC.NURSE ---
report given to accepting unit
[2023-04-19] MEDS: Acetaminophen 325 MG TABLET 650 MG PO ×2 (16:51→22:45)
[2023-04-19] MEDS: Morphine Sulfate 4 MG/ML CARTRIDGE 3 MG IVPUSH (17:52)
[2023-04-20] MEDS: Morphine Sulfate 4 MG/ML CARTRIDGE 3 MG IVPUSH ×4 (03:30→22:04)
[2023-04-20 03:54] VITALS: BP 125/72; PULSE 66; RESP 18; TEMP 36.1; O2SAT 99
[2023-04-20 06:06] LABS: Hematocrit 31.8 % (37.0-47.0); Hemoglobin 10.8 g/dl (12.0-16.0); Mean Corpuscular Volume 88.3 fL (80.0-98.0); Mean Platelet Volume 9.2 fL (9.4-12.3); Platelet Count 263 X10*3/uL (160-400); Red Cell Distribution Width 12.4 % (11.0-16.0); White Blood Count 11.7 X10*3/uL (4.8-10.8)
[2023-04-20 06:20] LABS: Anion Gap 8 (12-20); Blood Urea Nitrogen 3 mg/dL (9-16); Calcium 8.2 mg/dL (8.4-10.2); Carbon Dioxide 27 mmol/L (22-29); Chloride 109 mmol/L (96-108); Creatinine Clr Calc Pharmacy 104.3; Estimated Glomerular Filt Rate > 60; Glucose Random 108 mg/dL (60-115); Potassium 3.4 mmol/L (3.3-5.1); Sodium 141 mmol/L (135-145)
[2023-04-20 08:00] VITALS: BP 125/63; PULSE 80; RESP 20; TEMP 36.8; O2SAT 94
[2023-04-20] MEDS: Dextrose 5 % and 0.9 % NaCl 1,000 ML 100 ML IVCONT ×2 (08:43→18:22)
[2023-04-20 08:59] LABS: C Reactive Protein 7.71 mg/dL (< or = 0.50)
--- NOTE | 2023-04-20 09:34 | MHC.CM.PN ---
CM MET WITH PT AND FAMILY AT BEDSIDE. INDEPENDENT AT BASELINE. + COVID VAX NO HCP AND DECLINES TO NAME ONE AT THIS TIME. - THRIVE ASSESSMENT PCP IS JENNA AT [facility]. DP: HOME,NO SERVICES ANTICIPATED. FAMILY WILL TRANSPORT HOME. CM WILL CONTINUE TO FOLLOW FOR ANY CHANGE IN DC PLAN/NEEDS.
--- NOTE | 2023-04-20 11:25 | P.PNIM_ITS ---
Subjective Subjective Date of Service: 04/20/23 Interval History: c/o nausea no diarrhea had bloody BM overnight generalized abd discomfort This history was taken in Faroese from the patient. Review of Systems Review of Systems: Yes all other systems are reviewed and are negative Physical Exam 2 Vital Signs: Vital Signs: Last Vital Signs Temp 97.0 F 04/20/23 03:54 Pulse 66 04/20/23 03:54 Resp 18 04/20/23 03:54 BP 125/72 04/20/23 03:54 Pulse Ox 99 04/20/23 03:54 O2 Del Method Room Air 04/20/23 03:54 BMI result Body Mass Index 26.7 Gen: in no acute distress HEENT: sclera anicteric, moist mucus membranes Neck: supple Lungs: clear to auscultation bilaterally Heart: regular rate and rhythm, no murmurs Abd: soft, diffuse tenderness, non-distended Ext: no edema Skin: warm/well-perfused Neuro: alert and oriented x3, no focal findings Psych: appropriate affect Objective Data Active Medications Acetaminophen (Acetaminophen 325 Mg Tablet) 650 mg PO Q6H PRN PRN Reason: Pain, Mild (Pain Scale 1-3) Last Admin: 04/19/23 22:45 Dose: 650 mg Documented By: ODJUS Dicyclomine HCl (Dicyclomine Hcl 10 Mg Capsule) 10 mg PO QIDACHS PRN PRN Reason: abdominal cramps Dextrose/Sodium Chloride (D5ns) 1,000 mls @ 100 mls/hr IVCONT .Q10H [facility] Last Admin: 04/20/23 08:43 Dose: 100 mls/hr Documented By: DOTTIE Melatonin (Melatonin 3 Mg Tablet) 3 mg PO BEDTIME PRN PRN Reason: Insomnia Morphine Sulfate (Morphine Sulfate 4 Mg/Ml Cartridge) 3 mg IVPUSH Q4H PRN; Protocol PRN Reason: Pain, Severe (Pain Scale 7-10) Last Admin: 04/20/23 08:47 Dose: 3 mg Documented By: DOTTIE Ondansetron HCl (Ondansetron Hcl 4 Mg/2 Ml Vial) 4 mg IVPUSH Q8H PRN PRN Reason: Nausea and Vomiting Sodium Chloride (0.9 % Sodium Chloride Flush 3 Ml Syringe) 3 ml IVFLUSH QSHIFT [facility] Last Admin: 04/20/23 08:39 Dose: Not Given Documented By: DOTTIE Non-Admin Reason: IV Running Labs 04/20/23 05:37 04/20/23 05:37 Labs: Laboratory Results - last 24 hr 04/20/23 05:37 MCV 88.3 MCH 30.0 MCHC 34.0 RDW 12.4 Plt Count 263 MPV 9.2 L Absolute Nucleated RBC 0.000 Nucleated RBC % (auto) 0.0 Anion Gap 8 L Estim Creat Clear Calc 104.3 Estimated GFR > 60 Random Glucose 108 Calcium 8.2 L D C-Reactive Protein 7.71 H Microbiology Microbiology Results: Microbiology 04/19/23 06:39 Blood Culture - Preliminary Blood - Venous No growth after 24 hours. 04/19/23 06:39 Blood Culture - Preliminary Blood - Venous No growth after 24 hours. Assessment and Plan (1) Rectal bleeding: Status: Acute (2) Colitis: Status: Acute Plan d2 37yo F with no chronic conditions, recent amox-clav course for strep throat, presenting with abd pain and hematochezia, admitted for acute colitis acute colitis hematochezia - stool studies pending: Cdiff PCR, GI panel, WBCs - got 1 dose levofloxacin + metronidazole in ED, hold further ABX pending stool studies - full liquid diet - GI consultation VTE ppx - SCDs dispo - eventual home In my clinical judgment, the patient requires continued inpatient hospitalization for the following reasons: hematochezia Time Spent With Patient Time: Total time managing care of this patient today 35 minutes Quality Stroke Does the patient have a stroke diagnosis?: No VTE Prior VTE?: No VTE Risk Level:: Medical - low VTE Device Contraindication: Treatment Not Indicated VTE Drug Contraindication: Treatment Not Indicated
--- NOTE | 2023-04-20 16:18 | PM.EVENT ---
Event Note Date of Service: 04/20/23 Event Note: GI consult dictated Colonoscopy planned for 04/21 tp further evaluate colitis and rectal bleeding. She understands risks and benefis and agrees to proceed. Time Spent With Patient Time: Total time managing care of this patient today ____ minutes.
--- NOTE | 2023-04-20 16:30 | MHC.SHP ---
Pre-Procedural Eval Section A Date of Service: 04/20/23 The patient is an INPATIENT: Yes Changes since office visit: No Cold of Flu in the past 2 weeks, No New Medical Problems, No Changes in Medication and No Patient answered all questions The History & Physical has been completed within 30 days and I have reviewed it.: Yes Section B Chief Complaint: Acute Colitis Allergies: Allergies Allergy/AdvReac Type Severity Reaction Status Date / Time No Known Allergies Allergy Verified 04/19/23 02:53 Plan I have reviewed the history and physical and performed a pertinent physical examination on my patient. No changes have occurred unless specified. Time Spent With Patient Time: Total time managing care of this patient today ____ minutes.
[2023-04-20] MEDS: PEG 3350/Na Sulf,Bicarb,Cl/KCL 4,000 ML SOLN.RECON 4000 ML PO (18:22)
[2023-04-20 20:00] VITALS: BP 121/73; PULSE 84; RESP 18; TEMP 36.4; O2SAT 97
[2023-04-21] MEDS: ondansetron HCL 4 MG/2 ML VIAL IVPUSH (00:57)
[2023-04-21] MEDS: Dextrose 5 % and 0.9 % NaCl 1,000 ML 100 ML IVCONT (00:59)
--- NOTE | 2023-04-21 02:17 | CONS_ITS ---
DATE OF SERVICE: 04/20/2023 REFERRING PHYSICIAN: Cleo Booth MD REASON FOR CONSULTATION: Colitis and rectal bleeding. HISTORY OF PRESENT ILLNESS: The patient is a pleasant 37-year-old woman seen today in consultation because of colitis and rectal bleeding. She speaks Salvadorean and the history is obtained with the use of an drill runner helper. She reports 3 days prior to admission she developed the onset of diarrhea, which was initially nonbloody and then became bloody. This was associated with generalized abdominal cramping, which localized to both lower quadrants. There was nausea and nonbloody emesis but no fever or chills. She had eaten a baked potato and her was also ill after eating the similar meal. She had abdominal pain and was seen in the emergency room and was discharged on antibiotics. Of note, she had been on antibiotics for sore throat prior to developing her symptoms. CT scanning was obtained, which suggested a diagnosis of colitis because she had worsening abdominal pain and rectal bleeding. She presented again to the emergency room where she was noted to have an elevated white count and was admitted to the hospital. She denies any prior history of colitis. She does have a brother who has Crohn disease. She has not had rectal bleeding before this. PAST MEDICAL HISTORY: She denies other medical or surgical illnesses. She did have surgery for a molar . CURRENT MEDICATIONS: Her current medication list is reviewed in the chart. ALLERGIES: THERE ARE NONE REPORTED. FAMILY HISTORY: As above. SOCIAL HISTORY: She denies tobacco or alcohol use. She does use marijuana. REVIEW OF SYSTEMS: SKIN: No pruritus. HEENT: Negative. CARDIOPULMONARY: No shortness of breath or chest pain. GASTROINTESTINAL: As above. GENITOURINARY: Negative. NEUROPSYCHIATRIC: Negative. PHYSICAL EXAMINATION: GENERAL: Shows a pleasant female, sitting comfortably in bed. VITAL SIGNS: Stable. SKIN: Shows multiple tattoos. HEENT: Shows no scleral icterus. NECK: Without lymphadenopathy or thyromegaly. LUNGS: Clear. HEART: Shows regular rate and rhythm. S1, S2. No murmur. ABDOMEN: Soft without focal masses or tenderness. Bowel sounds are present. No organomegaly is noted. EXTREMITIES: Without edema. LABORATORY DATA: Shows a white blood cell count of 11.7, hematocrit 31. C-reactive protein is elevated at 7.7. IMPRESSION: Rectal bleeding with colitis. We discussed the differential diagnosis for her colitis today including infectious causes as well as ischemic causes, which would seem to be less likely and inflammatory bowel disease, which is also a possibility. I recommended she undergo colonoscopy for further evaluation. I discussed risks and benefits of the procedure with her. She understands and agrees to proceed. This will be arranged for tomorrow. Thanks for asking me to see her. I will follow her in the hospital with you. MD HECTOR Bundy/KARTHIKEYAN / [id number]
[2023-04-21 02:37] LABS: CDiff Gene PCR NEGATIVE (Negative); Leukocytes Stool Qualitative NEGATIVE (NEGATIVE)
[2023-04-21 03:19] VITALS: BP 119/60; PULSE 68; RESP 18; TEMP 36.2; O2SAT 100
[2023-04-21 06:16] LABS: Hematocrit 35.2 % (37.0-47.0); Hemoglobin 12.2 g/dl (12.0-16.0); Mean Corpuscular HGB Conc 34.7 g/dl (31.0-35.0); Mean Corpuscular Hemoglobin 30.7 pg (27.0-33.0); Mean Corpuscular Volume 88.4 fL (80.0-98.0); Mean Platelet Volume 9.3 fL (9.4-12.3); Platelet Count 307 X10*3/uL (160-400); Red Blood Count 3.98 X10*6/uL (4.20-5.50); Red Cell Distribution Width 12.2 % (11.0-16.0); White Blood Count 12.5 X10*3/uL (4.8-10.8)
[2023-04-21 06:34] LABS: Anion Gap 12 (12-20); Blood Urea Nitrogen < 3 mg/dL (9-16); Calcium 8.7 mg/dL (8.4-10.2); Carbon Dioxide 27 mmol/L (22-29); Chloride 105 mmol/L (96-108); Creatinine Clr Calc Pharmacy 102.5; Estimated Glomerular Filt Rate > 60; Glucose Random 84 mg/dL (60-115); Potassium 3.5 mmol/L (3.3-5.1); Sodium 140 mmol/L (135-145)
[2023-04-21 07:29] VITALS: BP 111/65; PULSE 76; RESP 16; TEMP 36.6; O2SAT 98
[2023-04-21 09:34] LABS: Campylobacter Not Detected (Not Detect.); Plesiomonas shigelloides Not Detected (Not Detect.)
[2023-04-21 09:35] LABS: Adenovirus F 40/41 Not Detected (Not Detect.); Astrovirus Not Detected (Not Detect.); Cryptosporidium Not Detected (Not Detect.); Cyclospora cayetanensis Not Detected (Not Detect.); E. coli EAEC Not Detected (Not Detect.); E. coli EPEC Not Detected (Not Detect.); E. coli ETEC Not Detected (Not Detect.); E. coli STEC Not Detected (Not Detect.); Entamoeba histolytica Not Detected (Not Detect.); Giardia lamblia Not Detected (Not Detect.); Norovirus GI/GII Not Detected (Not Detect.); Rotavirus A Not Detected (Not Detect.); Salmonella Not Detected (Not Detect.); Sapovirus Not Detected (Not Detect.); Shigella sp./EIEC Not Detected (Not Detect.); Vibrio Not Detected (Not Detect.); Vibrio Cholerae Not Detected (Not Detect.); Yersinia enterocolitica Not Detected (Not Detect.)
[2023-04-21 10:54] VITALS: BP 107/72; PULSE 86; RESP 16; TEMP 36.4; O2SAT 97
--- NOTE | 2023-04-21 11:34 | HO.ANESPROP2 ---
PMFSH Active Problems Active Problems: All Active Problems (Updated 04/19/23 @ 08:47 by Ismael Guerrero MD) Rectal bleeding (Acute) Colitis (Acute) Past Medical History Functional capacity: independent ambulation Family History Pertinent family history: No family history of colon cancer, no history of Crohn's disease, no ulcerative colitis Social History Social History Household Members: Spouse and Children Housing: House Alcohol intake: former Patient Tobacco Use Status: Never used Tobacco Second Hand Smoke Exposure: No Substance Use Type: Marijuana service: No Meds Allergies Allergy/AdvReac Type Severity Reaction Status Date / Time No Known Allergies Allergy Verified 04/19/23 02:53 Active Medications: Current Medications Acetaminophen (Acetaminophen 325 Mg Tablet) 650 mg PO Q6H PRN PRN Reason: Pain, Mild (Pain Scale 1-3) Last Admin: 04/19/23 22:45 Dose: 650 mg Dicyclomine HCl (Dicyclomine Hcl 10 Mg Capsule) 10 mg PO QIDACHS PRN PRN Reason: abdominal cramps Melatonin (Melatonin 3 Mg Tablet) 3 mg PO BEDTIME PRN PRN Reason: Insomnia Morphine Sulfate (Morphine Sulfate 4 Mg/Ml Cartridge) 3 mg IVPUSH Q4H PRN; Protocol PRN Reason: Pain, Severe (Pain Scale 7-10) Last Admin: 04/20/23 22:04 Dose: 3 mg Ondansetron HCl (Ondansetron Hcl 4 Mg/2 Ml Vial) 4 mg IVPUSH Q8H PRN PRN Reason: Nausea and Vomiting Last Admin: 04/21/23 00:57 Dose: 4 mg Sodium Chloride (0.9 % Sodium Chloride Flush 3 Ml Syringe) 3 ml IVFLUSH [facility] Last Admin: 04/21/23 07:05 Dose: Not Given Home Medications Medication Instructions Recorded Confirmed Last Taken Type cholecalciferol (vitamin D3) 50 50 mcg PO DAILY 04/19/23 04/19/23 04/18/23 History mcg (2,000 unit) capsule ibuprofen 800 mg tablet 800 mg PO Q8H PRN mild pain 04/19/23 04/19/23 Unknown History Exam Exam Date and Time: April 21, 2023 1134 Height,Weight and Vital Signs: Height 4 ft 11 in Weight 59.874 kg Last Vital Signs Temp 97.5 F 04/21/23 10:54 Pulse 86 04/21/23 10:54 Resp 16 04/21/23 10:54 BP 107/72 04/21/23 10:54 Pulse Ox 97 04/21/23 10:54 O2 Del Method Room Air 04/21/23 10:54 Pertinent Lab Results Pertinent Lab Results: Laboratory Tests 04/19/23 04/19/23 04/20/23 03:19 06:21 05:37 WBC 15.4 H 11.7 H RBC 4.57 3.60 L D Hgb 13.8 10.8 L D Hct 39.0 31.8 L MCV 85.3 88.3 MCH 30.2 30.0 MCHC 35.4 H 34.0 RDW 12.2 12.4 Plt Count 333 263 MPV 8.8 L 9.2 L Immature Gran % (Auto) 0.5 H Neut % (Auto) 79.7 H Lymph % (Auto) 11.7 L [place] % (Auto) 6.1 Eos % (Auto) 1.6 Baso % (Auto) 0.4 Lymph # (Auto) 1.8 [place] # (Auto) 0.9 Eos # (Auto) 0.2 Baso # (Auto) 0.1 Abs Immat Gran (auto) 0.08 H Absolute Neuts (auto) 12.3 H Absolute Nucleated RBC 0.000 0.000 Nucleated RBC % (auto) 0.0 0.0 Sodium 138 141 Potassium 3.3 3.4 Chloride 104 109 H Carbon Dioxide 25 27 Anion Gap 12 8 L BUN 17 H 3 L Creatinine 0.71 0.57 Estim Creat Clear Calc 83.7 104.3 Estimated GFR > 60 > 60 Random Glucose 106 108 Calcium 9.4 D 8.2 L D Total Bilirubin 0.4 AST 20 ALT 21 Alkaline Phosphatase 85 C-Reactive Protein 7.71 H Total Protein 7.4 Albumin 4.0 Urine Color Dark Yellow Urine Appearance Clear Urine pH 5.5 Ur Specific [place] >= 1.030 H Urine Protein Trace Urine Glucose (UA) Negative Urine Ketones Trace Urine Blood Moderate (2+) H Urine Nitrite Negative Ur Leukocyte Esterase Negative Urine RBC 3-5 H Urine WBC 0-5 Ur Squamous Epith Cells 11-20 Urine Bacteria None Seen Hyaline Casts 0-2 Urine Test NEGATIVE Stool Occult Blood POSITIVE Stool Leukocytes, Qual Stl C. cayetanensis PCR Stool Rotavirus A PCR Stl Adenov F PCR Stool Astrovirus (PCR) Stool Campylobacter PCR Stool Cryptosporidium PCR Stl Sh Tox Pr E STEC PCR Stool E coli O157 PCR Stl Enterotoxigenic E PCR Stool EPEC (PCR) Stool EAEC (PCR) Stl E. histolytica PCR Stool Giardia Lamblia PCR Stl P. shigelloides PCR Stool Salmonella PCR Stool Sapovirus (PCR) Stl Shigella/EIEC PCR St Y.enterocolitica PCR Stool Vibrio (PCR) Stl Vibrio cholerae PCR Stl Norovirus GI/GII PCR C. difficile Tox B Gene 04/21/23 04/21/23 01:45 05:53 WBC 12.5 H RBC 3.98 L Hgb 12.2 Hct 35.2 L MCV 88.4 MCH 30.7 MCHC 34.7 RDW 12.2 Plt Count 307 MPV 9.3 L Immature Gran % (Auto) Neut % (Auto) Lymph % (Auto) [place] % (Auto) Eos % (Auto) Baso % (Auto) Lymph # (Auto) [place] # (Auto) Eos # (Auto) Baso # (Auto) Abs Immat Gran (auto) Absolute Neuts (auto) Absolute Nucleated RBC 0.000 Nucleated RBC % (auto) 0.0 Sodium 140 Potassium 3.5 Chloride 105 Carbon Dioxide 27 Anion Gap 12 BUN < 3 L Creatinine 0.58 Estim Creat Clear Calc 102.5 Estimated GFR > 60 Random Glucose 84 Calcium 8.7 D Total Bilirubin AST ALT Alkaline Phosphatase C-Reactive Protein Total Protein Albumin Urine Color Urine Appearance Urine pH Ur Specific [place] Urine Protein Urine Glucose (UA) Urine Ketones Urine Blood Urine Nitrite Ur Leukocyte Esterase Urine RBC Urine WBC Ur Squamous Epith Cells Urine Bacteria Hyaline Casts Urine Test Stool Occult Blood Stool Leukocytes, Qual NEGATIVE Stl C. cayetanensis PCR Not Detected Stool Rotavirus A PCR Not Detected Stl Adenov F PCR Not Detected Stool Astrovirus (PCR) Not Detected Stool Campylobacter PCR Not Detected Stool Cryptosporidium PCR Not Detected Stl Sh Tox Pr E STEC PCR Not Detected Stool E coli O157 PCR Not applicable Stl Enterotoxigenic E PCR Not Detected Stool EPEC (PCR) Not Detected Stool EAEC (PCR) Not Detected Stl E. histolytica PCR Not Detected Stool Giardia Lamblia PCR Not Detected Stl P. shigelloides PCR Not Detected Stool Salmonella PCR Not Detected Stool Sapovirus (PCR) Not Detected Stl Shigella/EIEC PCR Not Detected St Y.enterocolitica PCR Not Detected Stool Vibrio (PCR) Not Detected Stl Vibrio cholerae PCR Not Detected Stl Norovirus GI/GII PCR Not Detected C. difficile Tox B Gene NEGATIVE Airway Mallampati Class: II TM Dist: >3cm Neck ROM: Full Heart: RRR Lungs: CTA Assessment and Plan Assessment Anesthesia Assessment: Anesthesia Plan Discussed Final Anesthetic Review ASA Class: II Final Preanesthetic Review: Meds/Allgs Chart Reviewed, Consent Obtained/Reviewed and Anes Risks/Benef Reviewed Patient Risk: Low Procedure Risk: Low Anesthetic Plan Anesthetic Plan: MAC: Disposition: Standard PACU
[2023-04-21 11:50] VITALS: BP 90/56; PULSE 62; RESP 16; TEMP 36.3; O2SAT 97
--- NOTE | 2023-04-21 11:55 | P.BOP_ITS ---
Brief Operative Note Date of Service: 04/21/23 Pre-op diagnosis: colitis Post-op diagnosis: same Procedure: colonoscopy Surgeon: Jermaine Mann Anesthesia: MAC Was an Inspector Rubber Stamp Die used for this Procedure?: No Estimated blood loss (mL): 2 Pathology: other Condition: stable Disposition: PACU
--- NOTE | 2023-04-21 11:55 | PM.EVENT ---
Event Note Date of Service: 04/21/23 Event Note: GI colonoscopy note dictated acute colitis from 30 to 50 cm, ?ischemic ve infectious. no bleeding biopsies obtained small hyperplastic appearing rectal polyp, bx'd. Rec: advance diet d/c when stable f/u bx results. Time Spent With Patient Time: Total time managing care of this patient today ____ minutes.
[2023-04-21 12:05] VITALS: BP 112/77; PULSE 65; RESP 16; TEMP 36.5; O2SAT 98
--- NOTE | 2023-04-21 12:21 | PC.NURSE ---
Earring x1 returned to patient in blue labeled cup upon transfer back to room from PACU by this RN.
--- NOTE | 2023-04-21 12:23 | OP_ITS ---
DATE OF SERVICE: 04/21/2023 SURGEON: Jermaine Mann MD INDICATIONS: Rectal bleeding and colitis. PREOPERATIVE DIAGNOSIS: POSTOPERATIVE DIAGNOSIS: PROCEDURE PERFORMED: Colonoscopy to the terminal ileum with biopsy. ESTIMATED BLOOD LOSS: COMPLICATIONS: ANESTHESIA: Monitored anesthesia care. ASSISTANTS: SPECIMENS: DESCRIPTION OF PROCEDURE: A history and physical was performed. The risks and benefits of the procedure were explained to the patient. Informed consent was obtained. The patient was placed in the left lateral decubitus position. A digital rectal exam was performed and was found to be normal. The Olympus pediatric video colonoscope was introduced into the rectum and advanced to the cecum. The cecum was identified by transillumination, palpation, and identification of ileocecal valve. Examination was performed. The scope was removed. She tolerated the procedure well and was returned to the recovery area in stable condition. FINDINGS: The terminal ileum was examined and appeared normal. The visualized colonic mucosa was normal except from 50 to 30 cm where there was focal colitis in a linear distribution suggestive of possible underlying ischemic colitis. Biopsies were obtained from the abnormal mucosa. In the rectum was a less than 5 mm polyp, which was removed with a biopsy forceps. Retroflexed examination was normal. IMPRESSION: Colitis, colon polyp. RECOMMENDATION: Follow up the biopsy results. MD HECTOR Bundy/RAKELL / [id number]
[2023-04-21 12:35] VITALS: BP 111/78; PULSE 62; RESP 16; TEMP 36.3; O2SAT 98
[2023-04-21] MEDS: Amoxicillin/Potassium Clav 875 MG TABLET PO (13:32)
[2023-04-21] MEDS: 0.9 % Sodium Chloride Flush 3 ML SYRINGE IVFLUSH (13:32)
--- NOTE | 2023-04-21 13:56 | P.DS_ITS ---
DS: Providers Provider Date of Service: 04/21/23 Date of admission: 04/19/23 11:01 Date of discharge: 04/21/23 Primary care physician: Anastacia Bojorquez MD Consults: 04/20/23 10:25 Consult to Gastroenterology Routine Consulting Provider: [facility] Reason for consultation: hematochezia, colitis DS: Diagnosis Discharge Diagnosis (1) Rectal bleeding: Status: Acute (2) Colitis: Status: Acute DS: Summary Hospital Course Hospital Course: from admission H+P by hospitalist Cleo Booth MD, 04/19/23: 37-year-old female patient with no significant past medical history currently receiving amoxicillin for last 6 days for strep throat was initially seen on 04/18/2023 at [facility] due to severe abdominal cramping associated with nausea vomiting and 1 episode of loose stool symptoms started few hours after eating baked potato with cheese for dinner, patient had similar symptoms since he ate the same Mary she denied fever chills, no lightheadedness dizziness hematochezia or melena, CT abdomen and pelvis was obtained that showed diffuse oral mural thickening involving entire sigmoid, descending and left transfers: With minimal fat stranding in the distal descending and sigmoid colon suggestive of colitis patient was discharged home on Augmentin but however returned back to [facility] this morning due to worsening abdominal cramp and had 3 bloody bowel movements without much stool she denies associated lightheadedness or dizziness, patient labs showed worsening WBC count 15,400 electrolytes this stable patient will be admitted to [facility] for IV antibiotics since she failed outpatient by mouth antibiotic treatment. 37yo F with no chronic conditions who took a recent course of amoxicillin for strep throat, presented with abdominal pain and hematochezia, and was admitted to the medical-surgical floor for acute colitis. Stool studies negative for Clostridium difficile and leukocytes; GI pathogen PCR panel was negative. Gastroenterology was consulted and Dr Jermaine Mann performed colonoscopy on 04/21/23. The procedure showed acute segmental colitis from 30 to 50 cm, possibly ischemic and less likely infectious. There was no bleeding noted. Biopsies were obtained. There was also a small hyperplastic-appearing rectal polyp that was biopsied. Her diet was advanced and she was discharged home with 1 week of amoxicillin-clavulanate. She should follow-up with Dr Mann for the results of the biopsies in 1-2 weeks. Time Spent with Patient Time attestation: Total time managing care of this patient today __35__ minutes. Discharge coordination time: Greater than 30 minutes Quality: Safe Use of Opioids Does Pt have an Active Cancer Diagnosis on the Problem List?: No Quality: Stroke Does the patient have a stroke diagnosis?: No Physical Exam Vital Signs: Vital Signs: Last Vital Signs Temp 97.3 F 04/21/23 12:35 Pulse 62 04/21/23 12:35 Resp 16 04/21/23 12:35 BP 111/78 04/21/23 12:35 Pulse Ox 98 04/21/23 12:35 O2 Del Method Room Air 04/21/23 12:35 BMI result Body Mass Index 26.7 Gen: in no acute distress HEENT: sclera anicteric, moist mucus membranes Neck: supple Lungs: clear to auscultation bilaterally Heart: regular rate and rhythm, no murmurs Abd: soft, non-tender, non-distended Ext: no edema Skin: warm/well-perfused Neuro: alert and oriented x3, no focal findings Psych: appropriate affect DS: Data Data Completed and Pending Completed studies during hospitalization [Text1]: Laboratory Results WBC 12.5 X10*3/uL (4.8-10.8) H 04/21/23 05:53 RBC 3.98 X10*6/uL (4.20-5.50) L 04/21/23 05:53 Hgb 12.2 g/dl (12.0-16.0) 04/21/23 05:53 Hct 35.2 % (37.0-47.0) L 04/21/23 05:53 MCV 88.4 fL (80.0-98.0) 04/21/23 05:53 MCH 30.7 pg (27.0-33.0) 04/21/23 05:53 MCHC 34.7 g/dl (31.0-35.0) 04/21/23 05:53 RDW 12.2 % (11.0-16.0) 04/21/23 05:53 Plt Count 307 X10*3/uL (160-400) 04/21/23 05:53 MPV 9.3 fL (9.4-12.3) L 04/21/23 05:53 Immature Gran % (Auto) 0.5 % (0.0-0.4) H 04/19/23 03:19 Neut % (Auto) 79.7 % (45-73) H 04/19/23 03:19 Lymph % (Auto) 11.7 % (20-40) L 04/19/23 03:19 [place] % (Auto) 6.1 % (2-11) 04/19/23 03:19 Eos % (Auto) 1.6 % (0-4) 04/19/23 03:19 Baso % (Auto) 0.4 % (0-2) 04/19/23 03:19 Lymph # (Auto) 1.8 X10*3/uL (1.2-4.9) 04/19/23 03:19 [place] # (Auto) 0.9 X10*3/uL (0.1-1.2) 04/19/23 03:19 Eos # (Auto) 0.2 X10*3/uL (0.0-0.4) 04/19/23 03:19 Baso # (Auto) 0.1 X10*3/uL (0.0-0.2) 04/19/23 03:19 Abs Immat Gran (auto) 0.08 X10*3/uL (0.00-0.03) H 04/19/23 03:19 Absolute Neuts (auto) 12.3 x10*3/uL (2.0-8.3) H 04/19/23 03:19 Absolute Nucleated RBC 0.000 X10*3/uL (0.0-0.012) 04/21/23 05:53 Nucleated RBC % (auto) 0.0 /100WBC (0.0-0.2) 04/21/23 05:53 Sodium 140 mmol/L (135-145) 04/21/23 05:53 Potassium 3.5 mmol/L (3.3-5.1) 04/21/23 05:53 Chloride 105 mmol/L (96-108) 04/21/23 05:53 Carbon Dioxide 27 mmol/L (22-29) 04/21/23 05:53 Anion Gap 12 (12-20) 04/21/23 05:53 BUN < 3 mg/dL (9-16) L 04/21/23 05:53 Creatinine 0.58 mg/dL (0.5-1.4) 04/21/23 05:53 Estim Creat Clear Calc 102.5 04/21/23 05:53 Estimated GFR > 60 04/21/23 05:53 Random Glucose 84 mg/dL (60-115) 04/21/23 05:53 Calcium 8.7 mg/dL (8.4-10.2) D 04/21/23 05:53 Total Bilirubin 0.4 mg/dL (0.0-1.0) 04/19/23 03:19 AST 20 U/L (5-31) 04/19/23 03:19 ALT 21 U/L (0-31) 04/19/23 03:19 Alkaline Phosphatase 85 U/L (39-117) 04/19/23 03:19 C-Reactive Protein 7.71 mg/dL (< or = 0.50) H 04/20/23 05:37 Total Protein 7.4 g/dL (6.5-8.0) 04/19/23 03:19 Albumin 4.0 g/dL (3.5-5.0) 04/19/23 03:19 Urine Color Dark Yellow 04/19/23 06:21 Urine Appearance Clear 04/19/23 06:21 Urine pH 5.5 (5.0-9.0) 04/19/23 06:21 Ur Specific Isabel >= 1.030 (1.005-1.025) H 04/19/23 06:21 Urine Protein Trace mg/dL (Neg-Trace) 04/19/23 06:21 Urine Glucose (UA) Negative mg/dL (Negative) 04/19/23 06:21 Urine Ketones Trace mg/dL (Negative) 04/19/23 06:21 Urine Blood Moderate (2+) (Negative) H 04/19/23 06:21 Urine Nitrite Negative (Negative) 04/19/23 06:21 Ur Leukocyte Esterase Negative (Negative) 04/19/23 06:21 Urine RBC 3-5 /HPF (0-2) H 04/19/23 06:21 Urine WBC 0-5 /HPF (0-5) 04/19/23 06:21 Ur Squamous Epith Cells 11-20 /HPF (0-2) 04/19/23 06:21 Urine Bacteria None Seen (None Seen) 04/19/23 06:21 Hyaline Casts 0-2 /LPF (0-2) 04/19/23 06:21 Urine Test NEGATIVE (NEGATIVE) 04/19/23 06:21 Stool Occult Blood POSITIVE (NEGATIVE) 04/19/23 06:21 Stool Leukocytes, Qual NEGATIVE (NEGATIVE) 04/21/23 01:45 Stl C. cayetanensis PCR Not Detected (Not Detect.) 04/21/23 01:45 Stool Rotavirus A PCR Not Detected (Not Detect.) 04/21/23 01:45 Stl Adenov F 40/41 PCR Not Detected (Not Detect.) 04/21/23 01:45 Stool Astrovirus (PCR) Not Detected (Not Detect.) 04/21/23 01:45 Stool Campylobacter PCR Not Detected (Not Detect.) 04/21/23 01:45 Stool Cryptosporidium PCR Not Detected (Not Detect.) 04/21/23 01:45 Stl Sh Tox Pr E STEC PCR Not Detected (Not Detect.) 04/21/23 01:45 Stool E coli O157 PCR Not applicable (Not Detect.) 04/21/23 01:45 Stl Enterotoxigenic E PCR Not Detected (Not Detect.) 04/21/23 01:45 Stool EPEC (PCR) Not Detected (Not Detect.) 04/21/23 01:45 Stool EAEC (PCR) Not Detected (Not Detect.) 04/21/23 01:45 Stl E. histolytica PCR Not Detected (Not Detect.) 04/21/23 01:45 Stool Giardia Lamblia PCR Not Detected (Not Detect.) 04/21/23 01:45 Stl P. shigelloides PCR Not Detected (Not Detect.) 04/21/23 01:45 Stool Salmonella PCR Not Detected (Not Detect.) 04/21/23 01:45 Stool Sapovirus (PCR) Not Detected (Not Detect.) 04/21/23 01:45 Stl Shigella/EIEC PCR Not Detected (Not Detect.) 04/21/23 01:45 St Y.enterocolitica PCR Not Detected (Not Detect.) 04/21/23 01:45 Stool Vibrio (PCR) Not Detected (Not Detect.) 04/21/23 01:45 Stl Vibrio cholerae PCR Not Detected (Not Detect.) 04/21/23 01:45 Stl Norovirus GI/GII PCR Not Detected (Not Detect.) 04/21/23 01:45 C. difficile Tox B Gene NEGATIVE (Negative) 04/21/23 01:45 Pending studies at discharge: Pending at discharge 04/21/23 11:40 Surgical [PTH] Routine Labs on day of discharge: = Discharge Plan Discharge Anticipated Discharge Date/Time: 04/21/23 13:51 Patient Disposition: Home, Self-Care Discharge Diagnosis: colitis, probably ischemic Referrals: Anastacia Donovan MD [Primary Care Provider] - 1 Week Jermaine Mann [Physician] - 1 Week Discharge Medications: New amoxicillin-pot clavulanate 875-125 mg Tablet 1 tab PO BID Qty: 14 0RF Continued ibuprofen 800 mg tablet 800 mg PO Q8H PRN (Reason: mild pain) cholecalciferol (vitamin D3) 50 mcg (2,000 unit) capsule 50 mcg PO DAILY Discontinued amoxicillin-pot clavulanate 875-125 mg tablet 1 tab PO BID 7 Days Qty: 14 0RF Discharge Orders: Discharge Order (Routine); Ordered 04/21/23 Ordered By: Oj Ocampo Diet: Advance to usual diet Activity on Discharge: As tolerated Stand Alone Forms: Patient Portal Discharge page Care Plan Goals: diagnosis of colitis Health Concerns: colitis, probably ischemic Plan of Treatment: resume regular diet take amoxicillin-clavulanate 875-125 mg twice daily for 7 days follow up with Dr Jermaine Mann, [facility], in 1-2 weeks for results of biopsies Please follow up with your primary care doctor within 1 week. Return to the hospital if you experience recurrent or worsening symptoms. Assessment: See Discharge Summary.
--- NOTE | 2023-04-21 14:19 | MHC.CM.PN ---
DP: PT HAS BEEN MEDICALLY CLEARED FOR DC HOME, NO SERVICES. FAMILY WILL TRANSPORT
== END 2023-04-21 16:15 | disposition home or self-care (01) | DRG 246 ==
LOC: HO.ED 06:09 → HO.EDOVER 11:07 → HO.S3 12:48
PROVIDERS: Internal Medicine Gastroenterology; Admitting Provider Hospitalist; Emergency Provider Emergency Medicine; PCP Internal Medicine; Visit Provider Family Medicine
PROC: 0DJD8ZZ Inspection of Lower Intestinal Tract, Via Natural or Artificial Opening Endoscopic (ICD-10-PCS; CPT 45378; principal; 2023-04-21 11:10)
DX: K55.9 Vascular disorder of intestine, unspecified (principal); K62.1 Rectal polyp; K92.1 Melena
CPT/HCPCS: 45380; 36415; 80048; 80053; 81001; 81025; 82272; 85025; 85027; 86140; 87040; 87493; 87507; 88305; 89055; 99221; 99285; J1956; J2270; J2405

== ENCOUNTER → 2023-04-19 11:01 | Outpatient (BNV) | payer MEDICAID, SELFPAY | PROVIDERS: Admitting Provider Hospitalist; Emergency Provider Emergency Medicine; Visit Provider Hospitalist | DX: K62.5 Hemorrhage of anus and rectum (principal); K52.9 Noninfective gastroenteritis and colitis, unspecified | CPT/HCPCS: 99223; 99232; 99239 ==

== ENCOUNTER 2023-08-24 08:48 | Outpatient (REF) | payer MEDICAID, SELFPAY ==
--- NOTE | ~2023-08-24 | CT_ITS ---
EXAMINATION: CTA ABDOMEN AND PELVIS CLINICAL INFORMATION: colitis, acute intestinal ischemia TECHNIQUE: Multiple axial images were obtained through the abdomen and pelvis before and after administration of 80 mL of Omnipaque 350 intravenously. Images were evaluated on independent dedicated 3-D workstation and 3-D images were reconstructed with concurrent radiologist supervision and subsequently interpreted. Specific vascular measurements are placed directly on the 3-D rendered images and are documented and stored in PACS. This CT examination was performed using dose optimization techniques as appropriate, variously including the following: *Automated exposure control. *Adjustment of mA and/or kV according to patient size (this includes techniques or standardized protocols for targeted exams where dose is matched to indication/reason for exam, i.e., extremities or head). *Use of iterative reconstruction technique. COMPARISON: CT abdomen and pelvis April 18, 2023 DLP: 237 mGy-cm. FINDINGS: VASCULAR: Abdominal aorta: Patent and normal in caliber Iliac arteries: Patent and normal in caliber Mesenteric arteries: Patent and normal in caliber Renal arteries: Patent single bilateral renal arteries NONVASCULAR: Lung Bases: The lungs are clear with no evidence of inflammation or nodules. Liver, Gallbladder, Biliary Tree: The liver is normal in size, shape, and attenuation. No focal hepatic lesion or biliary ductal dilatation is present. The gallbladder is unremarkable with no evidence of radiopaque gallstones, gallbladder wall thickening, or pericholecystic inflammatory changes. Pancreas: Unremarkable. Spleen: Unremarkable. Adrenal Glands: Unremarkable. Kidneys and Ureters: The kidneys are normal in size, shape, and attenuation. No hydronephrosis or hydroureter or calculi seen. No perinephric stranding. Bladder: Unremarkable. Gastrointestinal Tract: The large and small bowel are normal in caliber. The previously noted colonic thickening has resolved. No pericolonic fat stranding. Abdominal Wall: No hernia is demonstrated. Lymph Nodes: Normal. Pelvic Viscera: Unremarkable. Osseous Structures: Unremarkable. CT/CT angio abdomen pelvis IMPRESSION: No evidence of mesenteric ischemia. Interval resolution of the previously noted colonic wall thickening.
[2023-08-24] MEDS: iohexoL 350 MG/ML 75 ML INFUS..BTL 80 ML IV (09:42)
== END 2023-08-24 08:49 | disposition home or self-care (01) ==
LOC: HO.CT 08:48
PROVIDERS: PCP Internal Medicine; Visit Provider Internal Medicine
DX: K52.9 Noninfective gastroenteritis and colitis, unspecified (principal); K55.059 Acute (reversible) ischemia of intestine, part and extent unspecified
CPT/HCPCS: 74174; Q9967

== ENCOUNTER 2023-09-23 14:10 | Outpatient (REF) | payer MEDICAID, SELFPAY ==
--- NOTE | ~2023-09-23 | MM_ITS ---
EXAMINATION: MM SCREENING DIGITAL BREAST TOMOSYNTHESIS, BILATERAL CLINICAL INFORMATION: Screening. Asymptomatic. COMPARISON: Mammography: This is a baseline mammogram. TECHNIQUE: Digital breast tomosynthesis is performed in both the craniocaudal and mediolateral oblique views along with computer-aided detection (CAD). Synthesized 2D images are generated from the tomosynthesis. FINDINGS: The breasts are heterogeneously dense, which may obscure small masses (ACR BI-RADS breast composition Category c). There are no significant masses, abnormal calcifications, or other abnormalities. MM/MM tomosynthesis screening BI IMPRESSION: No mammographic evidence of malignancy. ASSESSMENT: BI-RADS BI-RADS 1 - Negative RECOMMENDATION: Routine annual mammography screening. 1 year F/U This examination should not preclude the clinical evaluation of a suspicious palpable abnormality. This patient's information was entered into a reminder system with a target due date for their next mammogram.
== END 2023-09-23 14:11 | disposition home or self-care (01) ==
LOC: HO.MAMMO 14:10
PROVIDERS: PCP Internal Medicine; Visit Provider Advanced Practice Midwife
DX: Z12.31 Encounter for screening mammogram for malignant neoplasm of breast (principal)
CPT/HCPCS: 77063; 77067

== ENCOUNTER → 2023-09-23 14:15 | Outpatient (BNV) | payer MEDICAID, SELFPAY | PROVIDERS: PCP Internal Medicine; Visit Provider Radiology Diagnostic Radiology | DX: Z12.31 Encounter for screening mammogram for malignant neoplasm of breast (principal) | CPT/HCPCS: 77063; 77067 ==

== ENCOUNTER 2023-10-05 09:44 | Outpatient (REF) | payer MEDICAID, SELFPAY ==
[2023-10-05 11:28] LABS: Basophils Absolute Auto 0.1 X10*3/uL (0.0-0.2); Basophils Percent Auto 0.9 % (0-2); Eosinophils Absolute Auto 0.3 X10*3/uL (0.0-0.4); Eosinophils Percent Auto 2.9 % (0-4); Hematocrit 37.2 % (37.0-47.0); Hemoglobin 13.1 g/dl (12.0-16.0); Imm Gran Abs Auto 0.05 X10*3/uL (0.00-0.03); Imm Gran Pct Auto 0.6 % (0.0-0.4); Lymphocytes Absolute Auto 2.4 X10*3/uL (1.2-4.9); Lymphocytes Percent Auto 26.5 % (20-40); MANUAL DIFF FLAG NO; Mean Corpuscular HGB Conc 35.2 g/dl (31.0-35.0); Mean Corpuscular Hemoglobin 30.8 pg (27.0-33.0); Mean Corpuscular Volume 87.3 fL (80.0-98.0); Mean Platelet Volume 9.9 fL (9.4-12.3); Monocytes Absolute Auto 0.6 X10*3/uL (0.1-1.2); Monocytes Percent Auto 7.1 % (2-11); Neutrophils Absolute Auto 5.5 x10*3/uL (2.0-8.3); Platelet Count 298 X10*3/uL (160-400); Red Blood Count 4.26 X10*6/uL (4.20-5.50); Red Cell Distribution Width 12.4 % (11.0-16.0); White Blood Count 8.9 X10*3/uL (4.8-10.8)
[2023-10-05 11:39] LABS: Estimated Average Glucose 97 mg/dL
[2023-10-05 11:54] LABS: Alanine Aminotransferase 15 U/L (0-31); Albumin Level 4.2 g/dL (3.5-5.0); Alkaline Phosphatase 75 U/L (39-117); Anion Gap 10 (12-20); Aspartate Amino Transferase 17 U/L (5-31); Bilirubin Direct 0.1 mg/dL (0.0-0.5); Bilirubin Total 0.3 mg/dL (0.0-1.0); Blood Urea Nitrogen 8 mg/dL (9-16); Carbon Dioxide 27 mmol/L (22-29); Chloride 105 mmol/L (96-108); Cholesterol 190 mg/dL (<200); Estimated Glomerular Filt Rate > 60; Glucose Random 96 mg/dL (60-115); HDL Cholesterol 41 mg/dL (>40); LDL Cholesterol Calculated 132 mg/dL (<100); Potassium 3.7 mmol/L (3.3-5.1); Sodium 138 mmol/L (135-145); Total Protein 7.5 g/dL (6.5-8.0); Triglycerides 86 mg/dL (<150)
[2023-10-05 12:07] LABS: HIV AB/AG Nonreactive (Nonreactive); HIV Num 1 0.06 S/CO (0.00-0.99); ~HepC Num1 0.15 S/CO (0.00-0.79); ~Hepatitis C Antibody Nonreactive (Nonreactive)
[2023-10-05 12:12] LABS: TSH reflex Free T4 4.58 uIU/mL (0.32-4.0)
[2023-10-05 12:47] LABS: Free T4 (Free Thyroxine) 0.87 ng/dL (0.71-1.85)
== END 2023-10-05 09:45 | disposition home or self-care (01) ==
LOC: HO.HHCL 09:44
PROVIDERS: Visit Provider Internal Medicine
DX: Z00.00 Encounter for general adult medical examination without abnormal findings (principal); Z11.4 Encounter for screening for human immunodeficiency virus [HIV]
CPT/HCPCS: 36415; 80048; 80061; 80076; 83036; 84439; 84443; 85025; 86803; 87389

== ENCOUNTER 2024-02-22 13:11 | Outpatient (REF) | payer MEDICAID, SELFPAY ==
[2024-02-22 14:26] LABS: Erythrocyte Sedimentation Rate 10 MM/HR (0-20)
[2024-02-23 04:22] LABS: Syphilis Screen Nonreactive (Nonreactive)
[2024-02-23 18:34] LABS: Lyme Abs Screen <0.90 index
== END 2024-02-22 13:12 | disposition home or self-care (01) ==
LOC: HO.LAB 13:11
PROVIDERS: PCP Internal Medicine; Visit Provider Psychiatry & Neurology Neurology
DX: R51.9 Headache, unspecified (principal)
CPT/HCPCS: 36415; 85652; 86617; 86618; 86780

== ENCOUNTER 2024-04-06 09:55 | Outpatient (REF) | payer MEDICAID, SELFPAY ==
--- NOTE | ~2024-04-06 | MR_ITS ---
EXAMINATION: MR BRAIN WITHOUT AND WITH CONTRAST CLINICAL INFORMATION: Chronic daily headaches, diplopia COMPARISON: None TECHNIQUE: Multiplanar multisequence MR imaging of the brain was obtained without and following the administration of 6 mL Gadavist intravenous contrast. FINDINGS: There is no acute infarct on diffusion-weighted imaging. There is no intracranial hemorrhage on iron-sensitive imaging. No extra-axial collection or mass effect/herniation. Normal parenchymal signal characteristics. No hydrocephalus. The ventricles are normal in morphology and size. No abnormal parenchymal or extra-axial enhancement. The major flow voids at the skull base are preserved. The midline structures are normal. The cerebellar tonsils are normally positioned. The craniocervical junction is normal. Marrow signal is within normal limits. The visualized soft tissues are without significant abnormality. No signal abnormality within the paranasal sinuses or within the mastoid air cells. MR/MR head/brain wo/w con IMPRESSION: Unremarkable contrast enhanced MRI of the brain. Electronically signed by: Bartolo Neeyl MD 04/25/2024 12:22 PM EDT
[2024-04-06] MEDS: gadobutroL 7.5 ML VIAL IVPUSH (10:46)
== END 2024-04-06 09:56 | disposition home or self-care (01) ==
LOC: HO.MRI 09:55
PROVIDERS: PCP Internal Medicine; Visit Provider Psychiatry & Neurology Neurology
DX: R51.9 Headache, unspecified (principal); H53.2 Diplopia
CPT/HCPCS: 70553; A9585

== ENCOUNTER 2024-09-28 13:54 | Outpatient (REF) | payer MEDICAID, SELFPAY ==
--- OUTSIDE RECORDS SUMMARY | 2024-09-28 14:13 | XMS_ITS ---
Author Organization [facility] Address [address] [place] [phone] Care Team Providers Care Motor Setter Name Role Phone NONE, NONE Primary Care Provider Unavailivon e Jermaine Mann Jr Unavailable [phone] REASON FOR VISIT pathology Encounters Encounter Location Date Provider Diagnosis [facility] [address] [place] [phone] 04/29/2023 Jermaine Mann Jr PLAN OF TREATMENT No Information
--- OUTSIDE RECORDS SUMMARY | 2024-09-28 14:13 | XMS_ITS | Encounter Summary ---
Author Organization [employer] Address [address] [place] [address] Care Team Providers Care Card Clothier Name Role Phone Anastacia Donovan MD Primary Care Provide r Reason for Visit * Reason Comments Med Refill Encounter Details Date Type Department Care Team ([facility] Contact Info) Description 09/21/2024 Refill [facility] MEDICINE [address] [place], [place] [phone] [facility] [address] [place] [address] Migraine with aura and without status migrainosus, not intractable Social History Tobacco Use Types Packs/Day Years Used Date Smoking Tobacco: Never Passive Smoke Exposure: Never Smokeless Tobacco: Never Alcohol Use Standard Drinks/Week Comments Never 0 (1 standard drink = 0.6 oz pur e alcohol) Depression Answer Date Recorded Patient Health Questionnaire-9 Score 0 09/11/2023 Patient Health Questionnaire-9 Score 0 09/11/2023 Last PHQ-9: Questionnaire Data Not on file 0 09/11/2023 Housing Stability Answer Date Recorded What is your housing situation today? I have kuldip alonso 05/29/[address] you li ve. Do you have problems with any of the following? None of the above 05/29/2023 Food Insecurity Answer Date Recorded Within the past 12 months, y ou worried that your food would run out before you got money to buy more: Never True 05/29/2023 Within the past 12 months,th e food you bought just didn't last and you didn't have enough money to get more: Never True 10/ Transportation Answer Date Recorded In the past 12 months, has l ack of transportation kept you from medical appts, meetings, work or from getting things needed for daily living? No 05/29/2023 Utilities Answer Date Recorded In the past 12 months, has t he electric, gas, oil or water company threatened to shut off services in your home? No 05/29/2023 Depression Answer Date Recorded Patient Health Questionnaire-2 Score 0 09/11/2023 Comments No Sex and Gender Information Value Date Recorded Sex Assigned at Female 06/09/2022 10:18 AM EDT Legal Sex Female 10:18 AM EDT Gender Identity Female 06/09/2022 10:18 AM EDT Sexual Orientation Don't know 06/09/2022 10 :18 AM EDT documented as of this encounter Plan of Treatment Upcoming Encounters Date Type Department Care Team (Late st Contact Info) Description 12/02/2024 9:30 AM EDT Office Visit [facility] MEDICINE [address] [place] [phone] Anastacia Donovan MD [address] [place] [address] documented as of this encounter Visit Diagnoses Diagnosis Migraine with aura and without status migrainosus, not intractable documented in this encounter Additional Health Concerns Assessment Noted Time PHQ-9 Depression Total Score: 0 09/11/19 24 2:04 PM EST documented as of this encounter Care Teams Card Clothier Relationship Specialty Start Date End Date Anastacia Donovan MD [address] [place] [id number] PCP - General Family Medicine 02/04/22 documented as of this encounter
--- OUTSIDE RECORDS SUMMARY | 2024-09-28 14:13 | XMS_ITS | Patient Health Record ---
Author Organization [facility] Address [address] [place] [phone] Care Team Providers Care Technical Designer Name Role Phone NONE, NONE Primary Care Provider Jermaine Barrow Jr Unavailable REASON FOR REFERRAL No Information SOCIAL HISTORY Sex Assigned At : Social History Observation Description Sex Assigned At Unknown PLAN OF TREATMENT No Information Insurance Providers Payer Name Payer Address Payer Phone Subscriber Number Group Number Insured Name Patient Relationship to Insured Coverage Start Date Coverage End Date [place] [address] [place] [id number] KEISHA GOLDMAN Self - patient is the insured
--- OUTSIDE RECORDS SUMMARY | 2024-09-28 14:13 | XMS_ITS | Encounter Summary ---
Author Organization [employer] [facility] Address [address] [place] [address] Care Team Providers Care Seat Joiner Name Role Phone Anastacia Donovan MD Primary Care Provide r Encounter Details Date Type Department Care Team (Late Contact Info) Description 09/09/2022 Abstract [facility] MEDICINE [address] [place] [phone] Ely Lincoln CNM [address] [place] [phone] Social History Tobacco Use Types Packs/Day Years Used Date Smoking Tobacco: Never Assessed Comments Unknown Sex and Gender Information Value Date Recorded Sex Assigned at Female 06/09/2022 10:18 AM EDT Legal Sex Female 10:18 AM EDT Gender Identity Female 06/09/2022 10:18 AM EDT Sexual Orientation Don't know 06/09/2022 10 :18 AM EDT COVID-19 Exposure Response Date Recorded In the last 10 days, have yo u been in contact with someone who was confirmed or suspected to have Coronavirus/COVID-19? No / Unsure 09/10/2022 2:21 PM EST documented as of this encounter Plan of Treatment Upcoming Encounters Date Type Department Care Team (Late st Contact Info) Description 12/02/2024 9:30 AM EDT Office Visit [facility] MED[facility]INE [address] [place] [phone] Anastacia Donovan MD [address] [place] [address] [phone] documented as of this encounter Visit Diagnoses Not on filedocumented in this encounter Care Teams Seat Joiner Relationship Specialty Start Date End Date Anastacia Donovan MD [address] [place] [phone] PCP - General Family Medicine 02/04/22 documented as of this encounter
--- OUTSIDE RECORDS SUMMARY | 2024-09-28 14:13 | XMS_ITS | Clinical Summary ---
Author Organization [facility] Address [address] [place] [address] Care Team Providers Care Rock Cutter Name Role Phone Unavailable Primary Care Provider Unavailabl e Social History Tobacco Use Types Packs/Day Years Used Date Smoking Tobacco: Never Assessed Comments Unknown Sex and Gender Information Value Date Recorded Sex Assigned at Not on file Legal Sex Female 8:43 PM EST Gender Identity Not on file Sexual Orientation Not on file Plan of Treatment Health Maintenance Due Date Last Done Comments Breast Cancer Screening 1983 DTaP,Tdap,and Td Vaccines (1 - Tdap) 2002 Hepatitis B Vaccines (1 of 3 - 19+ 3-dose series) 2002 Cervical Cancer Screening: P ap Smear 2004 Depression Screening 09/04/2023 HIV Screening 09/04/2023 Hepatitis C Screening 09/04/2023 Social Influencers of Health Screening 09/04/2023 COVID-19 Vaccine (2023-2 5 season) 2024 Influenza Vaccine (#1) 2024 HIB Vaccines Aged Out No longer eligi ble based on patient's age to complete this topic HPV Vaccines Aged Out No longer eligi ble based on patient's age to complete this topic Hepatitis A Vaccines Aged Out No long er eligible based on patient's age to complete this topic IPV Vaccines Aged Out No longer eligi ble based on patient's age to complete this topic MMR Vaccines Aged Out No longer eligi ble based on patient's age to complete this topic Meningococcal ACWY Vaccine Aged Out N o longer eligible based on patient's age to complete this topic Meningococcal B Vacine Aged Out No lo nger eligible based on patient's age to complete this topic Pneumococcal Vaccine: Pediat rics (0 to 5 Years) and At-Risk Patients (6 to 64 Years) Aged Out No longer eligible b ased on patient's age to complete this topic RSV Immunization Patients Un clemente 20 months Aged Out No longer eligible b ased on patient's age to complete this topic Varicella Vaccines Aged Out No longer eligible based on patient's age to complete this topic
--- OUTSIDE RECORDS SUMMARY | 2024-09-28 14:13 | XMS_ITS | Clinical Summary ---
Author Organization [id number] Address [address] [facility] 7[address] [place] [address] Care Team Providers Care Domestic Technician Name Role Phone Anastacia Donovan MD Primary Care Provide r Allergies No known active allergies Medications cholecalciferol (Vitamin D-3) 50 MCG (1999) capsule Take 1 capsule by mouth 1 (one) time each day. 03/12/20 22 Active Ascorbic Acid (vitamin C) 500 MG tablet Take 1 tablet by mouth daily 10/24/19 23 Active polycarbophil (FiberCon) 625 MG tabletIndication s:Other constipation Take 1 tablet (625 mg) by mouth Once per day. 30 tablet 11 01/12/20 24 025 Active docusate sodium (Colace) 100 MG capsuleIndicatio ns:Other constipation TAKE 1 CAPSULE BY MOUTH TWICE A DAY 180 capsule 04/13/20 24 Active ibuprofen 800 MG tablet TAKE 1 TABLET BY MOUTH THREE TIMES A DAY NEEDED FOR PAIN. 12/29/19 24 Active propranolol (Inderal) 20 MG tablet Take 20 mg by mouth Once per day. 04/13/20 24 Active clindamycin (Cleocin) 300 MG capsule TAKE 1 CAPSULE ORALLY 3 TIMES DAILY UNTIL GONE 01/19/20 24 Active topiramate 50 MG tabletIndication s:Migraine with aura and without status migrainosus, not intractable TAKE 1 TABLET BY MOUTH ONCE PER DAY 30 tablet 1 05/10/20 24 Active butalbital-aceta minophen-caffein e 50-325-40 MG tabletIndication s:Migraine with aura, not intractable, without status migrainosus TAKE 1 TABLET BY MOUTH EVERY 4 HOURS NEEDED FOR HEADACHE FOR UP TO 10 DAYS 10 tablet 2 06/09/20 24 Active polyethylene glycol, PEG, 3350 (MiraLax) 17 GM/SCOOP powderIndication s:Other constipation Take 17 g by mouth Once per day. 527 g 1 08/11/19 25 025 Active norethindrone (Micronor) 0.35 MG tablet Take 1 tablet (0.35 mg) by mouth Once per day. 28 tablet 3 08/22/19 25 026 Active SUMAtriptan (Imitrex) 50 MG tabletIndication s:Migraine with aura and without status migrainosus, not intractable TAKE 1 TABLET BY MOUTH FOR MIGRAINE. MAY REPEAT AFTER 2 HOURS IF NEEDED. MAX 2/24 HOURS. 9 tablet 09/21/19 25 Active SUMAtriptan (Imitrex) 50 MG tabletIndication s:Migraine with aura and without status migrainosus, not intractable TAKE 1 TABLET BY MOUTH FOR MIGRAINE. MAY REPEAT AFTER 2 HOURS IF NEEDED. MAX 2 TABLETS IN 24 HOURS. 9 tablet 07/25/20 24 025 Discontinued Active Problems Problem Noted Date Diagnosed Date Blurry vision 09/11/2023 Migraine with aura 09/11/2023 Assessment & Plan (08/11/2024 3:49 PM EST): I advise to avoid migraine triggers like red wine, chocolate, cheese, strong perfumes I advised to call neurology office for f/u appointment Assessment & Plan (02/12/2024 2:42 PM EDT): I advise to avoid migraine triggers like red wine, chocolate, cheese, strong perfumes I will go up on topomax to 50mg at bed time I will go up on sumatriptan to 50mg F./u with neurology Assessment & Plan (01/12/2024 12:05 PM EDT): I advise to avoid migraine triggers like red wine, chocolate, cheese, strong perfumes I discontinue amytriptiline and I started topomax 25mg at bed time I discontinue fioricept and added today sumatriptan Neurology referral RTC 4 weeks televisit Assessment & Plan (10/09/2023 4:50 PM EST): I advise to avoid migraine triggers like red wine, chocolate, cheese, strong perfumes I will increase her amitriptyline to 25mg at bed time I will discontinue sumatriptan (patient tells me he was feeling to agitated when she was taken it) I will start her on Fioricet Assessment & Plan (09/11/2023 4:26 PM EST): I advise to avoid migraine triggers like red wine, chocolate, cheese, strong perfumes Other constipation 09/11/2023 Assessment & Plan (08/11/2024 3:49 PM EST): I advised to increase water intake and fiber on diet Miralax prescribed today Assessment & Plan (01/12/2024 12:03 PM EDT): Drink plenty of water, add fabian fiber to diet (more fresh vegetables and fruit), add walks to every day activities C/w colace I added today fiber Assessment & Plan (10/09/2023 4:50 PM EST): I will send colace 100mg BID Assessment & Plan (09/11/2023 4:25 PM EST): I advise to drink more water include fiber on her diet and walk more Colace prescribed today Encounter for preventive care 09/11/2023 Assessment & Plan (09/11/2023 4:26 PM EST): See HPI Family history of colon cancer 08/20/2023 Colitis 05/05/2023 Assessment & Plan (05/05/2023 2:35 PM EDT): Both infectious and ischemic Antibiotics completed I gave information of dietary changes, soft or BRAT diets May need CTA abd/pelvis prior to FU with PCP in 3 month Strep pharyngitis 04/14/2023 Assessment & Plan (04/14/2023 10:45 AM EDT): Drink plenty of fluids and rest History of cannabis abuse 07/17/2022 Anxiety 09/01/2012 Depressive disorder 09/01/2012 Insomnia 09/01/2012 Encounters Date Type Department Care Team Description 09/21/2024 Refill [facility] [address] [place] [id number] Amparo, Veronica, CLIENT RELATIONS ASSOCIATE Migraine with aura and without status migrainosus, not intractable 08/22/2024 9:15 AM EST Procedure Visit [facility] [address] [place] [address] Ely Lincoln CNM Dysmenorrhea (Primary Dx) 08/22/2024 Travel 08/11/2024 9:15 AM EST Office Visit [address] [phone] Anastacia Donovan MD Other constipation (Primary Dx); Migraine with aura and without status migrainosus, not intractable; Encounter for immunization 08/11/2024 Travel 08/01/2024 Patient Outreach [address] [address] Anastacia Donovan MD Pre-visit Planning ([facility] screening completed on 09/11/2023) 07/26/[address] [phone] Anastacia Donovan MD Migraine with aura and without status migrainosus, not intractable 07/24/[address] [phone] Anastacia Donovan MD Migraine with aura and without status migrainosus, not intractable from Last 3 Months Immunizations Name Administration Dates Next Due Hep B, adult 09/11/2023,09/02/2007 HepB-CpG 05/05/2023 Influenza injectable quadriv alent IIV4 with preservative 06/14/2015 Influenza injectable quadriv alent preservative free 07/22/2021 Influenza, IIV3, injectable 07/25/2014 Influenza, Split (incl. jordan fied surface antigen) 09/01/2012 Influenza, seasonal, injecta ble, preservative free 08/11/2024,08/16/2016,06/04/2012 Pfizer Covid-19 Vaccine 12+ 09/11/2023 TD (adult), 2 Lf tetanus tox oid, preservative free, adsorbed 12/29/2005 Td (adult), 5 Lf tetanus tox oid, preservative free, adsorbed 06/10/2015 Tdap 10/10/2016 Family History Medical History Relation Name Comments Colon cancer Maternal Grandfather Colon cancer Mother's Brother Breast cancer Other Maternal Great Aunt Relation Name Status Comments Maternal Grandfather Mother's Brother Other Maternal Great Aunt Social History Tobacco Use Types Packs/Day Years Used Date Smoking Tobacco: Never Passive Smoke Exposure: Never Smokeless Tobacco: Never Tobacco Cessation:Counseling Given: Not Answered Alcohol Use Standard Drinks/Week Comments Never 0 [...] enough money to get more: Never True Transportation Answer Date Recorded In the past [...] Don't know 06/09/2022 10 :18 AM EDT Last Filed Vital Signs Vital Sign Reading Time Taken Comments Blood Pressure 119/80 08/22/2024 9:18 AM EST Pulse 70 08/22/2024 9:18 AM EST Temperature 36.6 ??C (97.9 ??F) 08/22/2024 9:18 AM ES T Respiratory Rate 16 08/22/2024 9:18 AM EST Oxygen Saturation 98% 08/22/2024 9:18 AM EST Inhaled Oxygen Concentration - - Weight 59 kg (130 lb) 08/22/2024 9:18 AM EST Height 149.9 cm (4' 11 ) 08/22/2024 9:18 AM EST Body Mass Index 26.26 08/22/2024 9:18 AM EST Plan of Treatment Upcoming Encounters Date Type Department Care Team (Late st Contact Info) Description 12/02/2024 9:30 AM EDT Office Visit [facility] [address] [place] [address] Anastacia Donovan MD [address] [place] [address] Health Maintenance Due Date Last Done Comments Alcohol/Substance Use Screening 1995 COVID-19 Vaccine ( season) 2024 09/11/2023, 10/19/2021, 09/21/2021 Depression Screening 09/11/2024 09/11/2023, 09/11/19 24 SDOH Screening 09/11/2024 09/11/2023 Mammogram 09/23/2024 09/23/2023 Family Planning (PISQ) 08/22/2025 08/22/2024 Tobacco Screening 08/22/2025 08/22/2024 Cervical Cancer Screening 07/22/2026 HPV/Cotest 07/22/2026 07/22/2021 Pap Smear 07/22/2026 07/22/2021, 07/22/2021 DTaP/Tdap/Td Vaccines (2 - Td or Tdap) 10/10/2026 10/10/2016, 06/10/2015, 12/29/2005 Zoster Vaccines (1 of 2) 2033 RSV Patients and Patients Aged 60 years or older (1 - 1-dose 75+ series) 2058 Hepatitis B Vaccines Completed 09/11/2023, 05/05/2023, 09/02/2007 HIV Screening Completed 10/05/2023, 01/10/2021 Hepatitis C Screening Completed 10/05/2023, 021 Influenza Vaccine Completed 08/11/2024, , 08/16/2016, Additional history exists HIB Vaccines Aged Out No longer eligi [...] patient's age to complete this topic Meningococcal Vaccine Aged Out No hailey olivia eligible based on patient's age to complete this topic Pneumococcal Vaccine: Pediatrics (0 to 5 Years) and At-Risk Patients (6 to 49) Years) Aged Out No longer eligible based on patient's age to complete this topic RSV under 20 months Aged Out No longe r eligible based on patient's age to complete this topic Rotavirus Vaccines Aged Out No longer eligible based on patient's age to complete this topic Procedures Procedure Name Priority Date/Time Associated Diagnosis Comments HEPATITIS C AB W/REFL TO HCV RNA, QN, PCR Routine 10/05/2023 9:46 AM EST Encounter for preventive care HIV 1/2 ANTIGEN/ANTIBODY, FOURTH GENERATION W/RFL Routine 10/05/2023 9:46 AM EST Encounter for preventive care BI MAMMOGRAM SCREENING TOMOSYNTHESIS BILATERAL Routine 09/23/2023 2:33 PM EST THINPREP IMAGING PAP AND HPV MRNA E6/E7 WITH REFLEX TO HPV 16,18/45 Routine 07/22/2021 10:07 AM EST PAP SMEAR Routine 07/22/2021 12:00 AM EST from Last 3 Months or Most Recently Relevant to Health Maintenance Results * Hepatitis C Antibody with Reflex to HCV, RNA, Quantitative, Real-Time PCR (10/05/2023 9:46 AM EST) Hepatitis C Antibody Nonreactive Nonreactive [facility] Comment:Antibodies to HCV no t detected; does not exclude early acuteHCV infection. Blood Venous blood specimen / Unknown 10/05/2023 9:46 AM EST 10/05/2023 11:20 AM EST us Anastacia Bojorquez MD LAB BLOOD ORDERABLES Final Result Performing Organization Address City/[facility]/ZIP Co de Phone Number [facility] [address] [place] [phone] * HIV-1/2 Antigen and Antibodies, Fourth Generation, with Reflexes (10/05/2023 9:46 AM EST) HIV AB/AG Nonreactive Nonreactive [facility] Comment:HIV-1 p24 Ag and/or HIV-1/HIV-2 Ab not detected.A test result that is nonreactive does not exclude thepossibility of exposure to or infection with HIV-1 and/orHIV-2. Nonreactive results in this assay for individualswith prior exposure to HIV-1 and/or HIV-2 may be due toantigen and antibody levels that are below the limit ofdetection of this assay.The CRISPR THERAPEUTIC[employer]ity HIV Ag/Ab Combo assay result andsupplemental assay results should be interpreted inconjunction with the patient's clinical presentation,history and other laboratory results. If the results areinconsistent with clinical evidence, additional testing issuggested to confirm the result. Blood Venous blood specimen / Unknown 10/05/2023 9:46 AM EST 10/05/2023 11:20 AM EST us Anastacia Bojorquez MD LAB BLOOD ORDERABLES Final Result Performing Organization Address City/[facility]/ZIP Co de Phone Number [facility] [address] [place] [phone] [phone] * BI Mammogram Screening Tomosynthesis Bilateral (09/23/2023 2:33 PM EST) Anatomical Region Laterality Modality Breast Bilateral Mammography 09/23/2023 2:33 PM EST Narrative 10/18/2023 8:15 AM EDT ? [facility] ? [address] ?[place], [place] [address] ? Mammography Report ? Signed ? Patient: Mastache,Lizmary ?MR#: [id number] ?? [id number] ? : 1985 ?Acct:[id number] ? Age/Sex: 38 / F ?ADM Date: 09/23/23 ? Loc: HO.MAMMO ? Attending Dr: Ely Lincoln CNM ? Ordering Physician: Anastacia Ayala MD ?Re ?? sults: 1Negative ? Date of Service: 09/23/23 ?Follow Up: 1 Year From Orig ?? inal Mammogram ? Procedure(s): MM tomosynthesis screening BI ?? Accession Number(s): [id number] ? cc: Anastacia Donovan MD; Anastacia Ayala MD ? EXAMINATION: ?? MM SCREENING DIGITAL BREAST TOMOSYNTHESIS, BILATERAL ? CLINICAL INFORMATION: ? Screening. Asymptomatic. ? COMPARISON: ?? Mammography: This is a baseline mammogram. ? TECHNIQUE: ?? Digital breast tomosynthesis is performed in both the craniocaudal and ?? mediolateral oblique views along with computer-aided detection (CAD). ?? Synthesized 2D images are generated from the tomosynthesis. ? FINDINGS: ?? The breasts are heterogeneously dense, which may obscure small masses ?? (ACR BI-RADS breast composition Category c). ? There are no significant masses, abnormal calcifications, or other ?? abnormalities. ? MM/MM tomosynthesis screening BI ?? IMPRESSION: ?? No mammographic evidence of malignancy. ? ASSESSMENT: ? BI-RADS BI-RADS 1 - Negative ? RECOMMENDATION: ?? Routine annual mammography screening. ? 1 year F/U ? This examination should not preclude the clinical evaluation of a ?? suspicious palpable abnormality. ? This patient's information was entered into a reminder system with a ?? target due date for their next mammogram. ? Dictated By: ?Ila Ingram MD ? Signed By: ?<Electronically signed by Ila Ingram MD in OV> ? 10/18/23 0811 ? DD/ 1433 ? TD/TT: ? Flask Pusher: ? Procedure Note Georgina, Image - 10/18/2023 [facility] [address] [place] [address] Mammography Report Signed Patient: Katelynn Crystal#: [id number] : 1985Acct:[id number] Age/Sex: 38 / FADM Date: 09/23/23 Loc: HO.MAMMO Attending Dr: Ely Lincoln CN Ordering Physician: Anastacia Ayala sults: 1Negative Date of Service: 09/23/23Follow Up: 1 Year From Orig inal Mammogram Procedure(s): MM tomosynthesis screening BI Accession Number(s): [id number] cc: Anastacia Donovan MD; Anastacia Ayala MD EXAMINATION: MM SCREENING DIGITAL BREAST TOMOSYNTHESIS, BILATERAL CLINICAL INFORMATION: Screening. Asymptomatic. COMPARISON: Mammography: This is a baseline mammogram. TECHNIQUE: Digital breast tomosynthesis is performed in both the craniocaudal and mediolateral oblique views along with computer-aided detection (CAD). Synthesized 2D images are generated from the tomosynthesis. FINDINGS: The breasts are heterogeneously dense, which may obscure small masses (ACR BI-RADS breast composition Category c). There are no significant masses, abnormal calcifications, or other abnormalities. MM/MM tomosynthesis screening BI IMPRESSION: No mammographic evidence of malignancy. ASSESSMENT: BI-RADS BI-RADS 1 - Negative RECOMMENDATION: Routine annual mammography screening. 1 year F/U This examination should not preclude the clinical evaluation of a suspicious palpable abnormality. This patient's information was entered into a reminder system with a target due date for their next mammogram. Dictated By: Ila Ingram MD Signed By: <Electronically signed by Ila Ingram MD in OV> 10/18/23 0811 DD/ 1433 TD/TT: Flask Pusher: [facility] HospitalShariJessica Miller MD [facility] BI PROCEDURES Edited Result - Final * THINPREP TIS PAP AND HPV mRNA E6/E7 WITH REFLEX TO HPV 16,18/45 (07/22/2021 10:07 AM EST) Clinical Information: None given [facility] COMMENT SEE COMMENT [facility] Comment: EXPLANATORY NOTE: ? The Pap is a screening test for cervical cancer. It is ?? not a diagnostic test and is subject to false negative ?? and false positive results. It is most reliable when a ?? satisfactory sample, regularly obtained, is submitted ?? with relevant clinical findings and history, and when ?? the Pap result is evaluated along with historic and ?? current clinical information. ?? COMMENT: This Pap test has been evaluated with computer assisted technology. [employer] [facility] Environmental Technical Officer: SEE COMMENT [facility] Comment: CXP, CT(ASCP) CT screening location: [address] ??[address] HPV nRNA E6/E7 Not Detected Not Detected [facility] Comment: Methodology: Amusement Park Ride Mechanic-Mediated Amplification This assay detects E6/E7 viral messenger RNA (mRNA) from 14 high-risk HPV types (16,18,31,33,35,39,45,51,52,56,58,59,66,68). ? The analytical performance characteristics of this assay have been determined by [employer]. The modifications have not been cleared or approved by the FDA. This assay has been validated pursuant to the CLIA regulations and is used for clinical purposes. ?? For additional information, please refer to http://education.[employer]/faq/XFK252f7 (This link if provided for information/ educational purposes only.) Interpretation/Re sult: Negative for intraepithelial lesion or malignancy. [facility] LMP: 06/30/21 [facility] Prev. BX: NONE GIVEN [facility] Prev. PAP: NONE GIVEN [facility] SOURCE: None given [facility] Statement Of Adequacy: SEE COMMENT [facility] Comment: Satisfactory for evaluation. Endocervical/transformation zone component present. 07/22/2021 10:0 7 AM EST Ely Lincoln [facility] PATHOLOGY ORDERABLES Final Result Performing Organization Address [facility] Co de Phone Number [facility] [address] * Pap Smear (07/22/2021 12:00 AM EST) Swab Ely Lincoln [facility] CYTOLOGY ORDERABLES F inal Result Performing Organization Address City/[facility]/ZIP Co de Phone Number [address], [place] [phone] from Last 3 Months or Most Recently Relevant to Health Maintenance Insurance [facility] C3 Care Teams Domestic Technician Relationship Specialty Start Date End Date Anastacia Donovan MD [address] [place] [id number] PCP - General Family Medicine 02/04/22
--- OUTSIDE RECORDS SUMMARY | 2024-09-28 14:13 | XMS_ITS | Encounter Summary ---
Author Organization [employer] Address [address] [place] [address] Care Team Providers Care Director Of Philanthropy Name Role Phone Anastacia Donovan MD Primary Care Provide r Reason for Visit * Reason Onset Date Comments Med Refill 07/26/2024 Encounter Details Date Type Department Care Team ([facility] st Contact Info) Description 07/26/[address] [facility] [address] [place] [address] Anastacia Donovan MD [address] [place] [address] Migraine with aura and without status migrainosus, [...] Description 12/02/2024 9:30 AM EDT Office Visit [facility] [address] [place] [address] Anastacia Donovan MD [address] [place] [address] documented as of this encounter Visit Diagnoses Diagnosis Migraine with aura and without status migrainosus, not intractable documented in this encounter Additional Health Concerns Assessment Noted Time PHQ-9 Depression Total Score: 0 09/11/19 24 2:04 PM EST documented as of this encounter Care Teams Director Of Philanthropy Relationship Specialty Start Date End Date Anastacia Donovan MD [address] [place] [address] PCP - General Family Medicine 02/04/22 documented as of this encounter
--- OUTSIDE RECORDS SUMMARY | 2024-09-28 14:13 | XMS_ITS ---
Author Organization [employer] Address [address] [place] [phone] Care Team Providers Care Ticketing Agent Name Role Phone NONE, NONE Primary Care Provider Unavailivon e Jermaine Mann Jr Unavailable REASON FOR VISIT COLITIS,RECTAL BLEEDING Encounters Encounter Location Date Provider Diagnosis [facility] In[facility] [address] [place], [place] [id number] 04/21/2023 Jermaine Mann Jr PLAN OF TREATMENT No Information
== END 2024-09-28 13:55 | disposition home or self-care (01) ==
LOC: HO.MAMMO 13:54
PROVIDERS: PCP Internal Medicine; Visit Provider Internal Medicine
DX: Z12.31 Encounter for screening mammogram for malignant neoplasm of breast (principal)
CPT/HCPCS: 77063; 77067

== ENCOUNTER → 2024-09-28 14:15 | Outpatient (BNV) | payer MEDICAID, SELFPAY | PROVIDERS: PCP Internal Medicine; Visit Provider Internal Medicine | DX: Z12.31 Encounter for screening mammogram for malignant neoplasm of breast (principal) | CPT/HCPCS: 77063; 77067 ==

== ENCOUNTER 2025-03-16 14:29 | Outpatient (REF) | payer MEDICAID, SELFPAY ==
--- NOTE | ~2025-03-16 | US_ITS ---
EXAMINATION: US PELVIS CLINICAL INFORMATION: Dysmenorrhea COMPARISON: 09/26/2022. TECHNIQUE: Ultrasound of the pelvis is performed using both transabdominal and transvaginal transducers along with Doppler. Transvaginal imaging is performed due to inadequate visualization transabdominally. FINDINGS: Uterus: The uterus is anteverted and measures 8.1 x 4.1 x 6.0 cm. The cervix is normal with small dilatation cysts. The double wall endometrial thickness is 10 mm. The uterus is smooth in contour and has normal myometrial echogenicity. No visible fibroid. Adnexa: Both ovaries are visualized. There is normal color flow to the adnexa. There is no ovarian torsion. There is no pelvic ascites or fluid collection. There are no adnexal masses. Right ovary measures 3.2 x 1.5 x 2.4 cm. Volume = 5.9 mL. Normal sonographic appearance. Left ovary measures 2.2 x 2.6 x 2.6 cm. Volume = 7.8 mL normal sonographic appearance. Corpus luteal cyst measuring 1.0 x 1.0 x 0.9 cm. US/US pelvic and transvaginal IMPRESSION: 1. Normal pelvic ultrasound. Electronically signed by: Filiberto Marie MD 03/16/2025 03:12 PM EDT
--- OUTSIDE RECORDS SUMMARY | 2025-03-16 14:32 | XMS_ITS | Clinical Summary ---
Author Organization [employer] Address [address] [place] [address] 7[address] [place] [address] Care Team Providers Care Polysomnographic Tech Name Role Phone Anastacia Donovan MD Primary Care Provide r Allergies No known active allergies Medications cholecalciferol (Vitamin D-3) 50 MCG (1999) capsule Take 1 capsule by mouth 1 (one) time each day. 03/12/20 22 Active Ascorbic Acid (vitamin C) 500 MG tablet Take 1 tablet by mouth daily 10/24/19 23 Active docusate sodium (Colace) 100 MG capsuleIndicatio [...] DAYS 10 tablet 2 06/09/20 24 Active SUMAtriptan (Imitrex) 50 MG tabletIndication s:Migraine with aura and without status migrainosus, not intractable TAKE 1 TABLET BY MOUTH FOR MIGRAINE. DECEMBER REPEAT AFTER 2 HOURS IF NEEDED. MAX 2/24 HOURS. 9 tablet 09/21/19 Active norethindrone (Micronor) 0.35 MG tabletIndication s:Dysmenorrhea TAKE 1 TABLET BY MOUTH EVERY DAY 84 tablet 02/14/20 Active GaviLAX 17 GM/SCOOP powderIndication s:Other constipation TAKE 17 G BY MOUTH ONCE PER DAY. DISSOLVE WITH WATER PRIOR TO TAKING 510 g 1 03/06/20 25 Active polyethylene glycol, PEG, 3350 (MiraLax) 17 GM/SCOOP powderIndication s:Other constipation Take 17 g by mouth Once per day. 527 g 1 08/11/19 25 025 Discontinued Active Problems Problem Noted Date Diagnosed Date Dysmenorrhea 12/02/2024 Assessment & Plan (12/02/2024 12:20 PM EDT): Continue with Micronor I added today ibuprofen 800 mg every 8 hours with full stomach in case she has pain with her menstrual period Continue to follow-up with specialist Blurry vision 09/11/2023 Migraine with aura 09/11/2023 Assessment & Plan (12/02/2024 12:21 PM EDT): I advise to avoid migraine triggers like red wine, chocolate, cheese, strong perfumes With current medication regimen and follow-up with neurology Assessment & Plan (08/11/2024 3:49 PM EST): [...] Encounters Date Type Department Care Team Description 03/05/2025 Refill [facility] [address] [place] [address] Anastacia Donovan MD Other constipation 02/16/2025 1:45 PM EDT Office Visit [facility] [address] [place] [address] Ely Lincoln CNM Dysmenorrhea (Primary Dx) 02/16/2025 Travel 02/15/2025 Telephone [facility] [address] [place] [address] Ely Lincoln CNM chart prep 02/13/2025 Telephone [facility] [address] [place] [address] Anastacia Donovan MD Appointment Request 02/10/2025 Refill [facility] [address] [place] [address] Ely Lincoln CNM Dysmenorrhea from Last 3 Months Immunizations Immunization Administration Dates Next Due Hep B, adult [...] Date Recorded Patient Health Questionnaire-9 Score 0 12/02/2024 Patient Health Questionnaire-9 Score 0 12/02/2024 Last PHQ-9: Questionnaire Data Not on file 0 12/02/2024 Housing Stability Answer Date Recorded What is [...] Date Recorded Patient Health Questionnaire-2 Score 0 12/02/2024 Comments No Intention Date Recorded No desire to become (finding) 0 02/16/2025 Sex and Gender Information Value Date Recorded Sex Assigned at Female 06/09/2022 10:18 AM EDT Legal Sex Female 10:18 AM EDT Gender Identity Female 06/09/2022 10:18 AM EDT Sexual Orientation Don't know 06/09/2022 10 :18 AM EDT Last Filed Vital Signs Vital Sign Reading Time Taken Comments Blood Pressure 110/80 02/16/2025 1:42 PM EDT Pulse 60 02/16/2025 1:42 PM EDT Temperature 36.8 C (98.2 F) 02/16/2025 1:42 PM EDT Respiratory Rate 20 02/16/2025 1:42 PM EDT Oxygen Saturation 99% 02/16/2025 1:42 PM EDT Inhaled Oxygen Concentration - - Weight 63 kg (138 lb 12.8 oz) 02/16/2025 1:42 PM EDT Height 149.9 cm (4' 11 ) 02/16/2025 1:42 PM EDT Body Mass Index 28.03 02/16/2025 1:42 PM EDT Plan of Treatment Health Maintenance Due Date Last Done Comments Alcohol/Substance Use Screening 1995 HPV Vaccines (1 - 3-dose series) 1998 COVID-19 Vaccine ( season) 2024 09/11/2023, 10/19/2021, 09/21/2021 SDOH Screening 09/11/2024 09/11/2023 Influenza Vaccine (#1) 2025 , 07/22/2021, 08/16/2016, Additional history exists Mammogram 09/28/2025 09/28/2024, 09/23/2023 Depression Screening 12/02/2025 12/02/2024, 12/03/19 25 Disability Screening 12/02/2025 12/02/2024 Family Planning (PISQ) 02/16/2026 02/16/2025 Tobacco Screening 02/16/2026 02/16/2025 Cervical Cancer Screening 07/22/2026 HPV/Cotest 07/22/2026 07/22/2021 Pap Smear 07/22/2026 07/22/2021, 07/22/2021 DTaP/Tdap/Td Vaccines (2 - Td or Tdap) 10/10/2026 10/10/2016, 06/10/2015, 12/29/2005 Zoster Vaccines (1 of 2) 2033 RSV Patients and Patients Aged 60 years or older (1 - 1-dose 75+ series) 2058 Hepatitis B Vaccines Completed 09/11/2023, 05/05/2023, 09/02/2007 HIV Screening Completed 10/05/2023, 01/10/2021 Hepatitis C Screening Completed 10/05/2023, 021 HIB Vaccines Aged Out No longer eligi ble based on patient's age to complete this topic Hepatitis A Vaccines Aged Out No long er eligible based on patient's age to complete this topic IPV Vaccines Aged Out No longer eligi ble based on patient's age to complete this topic Meningococcal B Vaccine Aged Out No l onger eligible based on patient's age to complete this topic Meningococcal Vaccine Aged Out No hailey olivia eligible based on patient's age to complete this topic Pneumococcal Vaccine: Pediatrics (0 to 5 Years) and At-Risk Patients (6 to 49) Years Aged Out No longer eligible based on patient's age to complete this topic RSV under 20 months Aged Out No longe r eligible based on patient's age to complete this topic Rotavirus Vaccines Aged Out No longer eligible based on patient's age to complete this topic Procedures Procedure Name Priority Date/Time Associated Diagnosis Comments BI MAMMOGRAM SCREENING TOMOSYNTHESIS BILATERAL Routine 09/28/2024 2:05 PM EST HEPATITIS C AB W/REFL TO HCV RNA, QN, PCR Routine 10/05/2023 9:46 AM EST Encounter for preventive care HIV 1/2 ANTIGEN/ANTIBODY, FOURTH GENERATION W/RFL Routine 10/05/2023 9:46 AM EST Encounter for preventive care THINPREP IMAGING PAP AND HPV MRNA E6/E7 WITH REFLEX TO HPV 16,18/45 Routine 07/22/2021 10:07 AM EST PAP SMEAR Routine 07/22/2021 12:00 AM EST from Last 3 Months or Most Recently Relevant to Health Maintenance Results * BI Mammogram Screening Tomosynthesis Bilateral (09/28/2024 2:05 PM EST) Anatomical Region Laterality Modality Breast Bilateral Mammography 09/28/2024 2:05 PM EST Narrative 10/04/2024 12:42 PM EST [facility] [address] [place] [address] Mammography Report Signed Patient: Mastache,Lizmary MR#: [id number] : 1985 Acct:[id number] Age/Sex: 39 / F ADM Date: 09/28/24 Loc: HO.MAMMO Attending Dr: Anastacia Bojorquez MD Ordering Physician: Anastacia Donovan MD Results: 1Negative Date of Service: 09/28/24 Follow Up: 1 Year From Orig inal Mammogram Procedure(s): MM tomosynthesis screening BI Accession Number(s): [id number] cc: Anastacia Donovan MD EXAMINATION: MM SCREENING DIGITAL BREAST TOMOSYNTHESIS, BILATERAL CLINICAL INFORMATION: Screening. Asymptomatic. COMPARISON: Mammography: Comparison is made with available priors TECHNIQUE: Digital breast mammography with tomosynthesis is performed in both the craniocaudal and mediolateral oblique views along with computer-aided detection (CAD). FINDINGS: The breasts are heterogeneously dense, which [...] target due date for their next mammogram. Electronically signed by: Iveth Hernandez DO 10/04/2024 12:40 PM [facility] Dictated By: Iveth Hernandez DO Signed By: <Electronically signed by Iveth Hernandez DO in OV> 10/04/24 1240 DD/ 1405 TD/TT: 09/28/24 1426 Educational Institution Curator: Procedure Note Donotuseinterpreter, Image - 10/04/2024 [facility] [address] [place] [address] [place] [address] Mammography Report Signed Patient: Jana CrystalR#: [id number] : 1985Acct:[id number] Age/Sex: 39 / FADM Date: 09/28/24 Loc: HO.MAMMO Attending Dr: Anastacia Bojorquez MD Ordering Physician: Anastacia Donovan MDResults: 1Negative Date of Service: 09/28/24Follow Up: 1 Year From Orig inal Mammogram Procedure(s): MM tomosynthesis screening BI Accession Number(s): [id number] cc: Anastacia Donovan MD EXAMINATION: MM SCREENING DIGITAL BREAST TOMOSYNTHESIS, BILATERAL CLINICAL INFORMATION: Screening. Asymptomatic. COMPARISON: Mammography: Comparison is made with available priors TECHNIQUE: Digital breast mammography with tomosynthesis is performed in both the craniocaudal and mediolateral oblique views along with computer-aided detection (CAD). FINDINGS: The breasts are heterogeneously dense, which [...] target due date for their next mammogram. Electronically signed by: Iveth Hernandez DO 10/04/2024 12:40 PM EST Dictated By: Iveth Hernandez DO Signed By: <Electronically signed by Iveth Hernandez DO in OV> 10/04/24 1240 DD/ 1405 TD/TT: 09/28/24 1426 Educational Institution Curator: us Anastacia Bojorquez MD IMG BI PROCEDURES Fin al Result * Hepatitis C Antibody with Reflex to HCV, RNA, Quantitative, Real-Time PCR (10/05/2023 9:46 AM EST) Hepatitis C Antibody Nonreactive Nonreactive [facility] Comment:Antibodies to HCV no t detected; does not exclude early acuteHCV infection. Blood Venous blood specimen / Unknown 10/05/2023 9:46 AM EST 10/05/2023 11:20 AM EST Anastacia Bojorquez MD LAB BLOOD ORDERABLES Final Result Performing Organization Address [facility] Co de Phone Number [facility] [address] [place] [phone] HIV-1/2 Antigen and Antibodies, Fourth Generation, with Reflexes (10/05/2023 9:46 AM EST) HIV AB/AG Nonreactive Nonreactive [facility] Comment:HIV-1 p24 Ag and/or HIV-1/HIV-2 Ab not detected.A test result that is nonreactive does not exclude thepossibility of exposure to or infection with HIV-1 and/orHIV-2. Nonreactive results in this assay for individualswith prior exposure to HIV-1 and/or HIV-2 may be due toantigen and antibody levels that are below the limit ofdetection of this assay.The [employer] HIV Ag/Ab Combo assay result andsupplemental assay results should be interpreted inconjunction with the patient's clinical presentation,history and other laboratory results. If the results areinconsistent with clinical evidence, additional testing issuggested to confirm the result. Blood Venous blood specimen / Unknown 10/05/2023 9:46 AM EST 10/05/2023 11:20 AM EST Anastacia Bojorquez MD LAB BLOOD ORDERABLES Final Result Performing Organization Address [facility] Co de Phone Number [facility] [address] [place] [phone] THINPREP TIS PAP AND HPV mRNA E6/E7 WITH REFLEX TO HPV 16,18/45 (07/22/2021 10:07 AM EST) Clinical Information: None given [facility] COMMENT SEE COMMENT [facility] Comment: EXPLANATORY NOTE: The Pap is a screening test for cervical cancer. It is not a diagnostic test and is subject to false negative and false positive results. It is most reliable when a satisfactory sample, regularly obtained, is submitted with relevant clinical findings and history, and when the Pap result is evaluated along with historic and current clinical information. COMMENT: This Pap test has been evaluated with computer assisted technology. [facility] Computer Network Support Specialist: SEE COMMENT [facility] Comment: CXP, CT(ASCP) CT screening location: [address] [address] HPV nRNA E6/E7 Not Detected Not Detected [facility] Comment: Methodology: Pipe Recovery Specialist-Mediated Amplification This assay detects E6/E7 viral messenger RNA (mRNA) from 14 high-risk HPV types (16,18,31,33,35,39,45,51,52,56,58,59,66,68). The analytical performance characteristics of this assay have been determined by [employer]. The modifications have not been cleared or approved by the FDA. This assay has been validated pursuant to the CLIA regulations and is used for clinical purposes. For additional information, please refer to http://education.[employer]/faq/[place]V469p7 (This link if provided for information/ educational purposes only.) Interpretation/Re sult: Negative for intraepithelial lesion or malignancy. [facility] LMP: 06/30/21 [facility] Prev. BX: NONE GIVEN [facility] Prev. PAP: NONE [facility]IVEN [facility] SOURCE: None given [facility] Statement Of Adequacy: SEE COMMENT [facility] Comment: Satisfactory for evaluation. Endocervical/transformation zone component present. 07/22/2021 10:0 7 AM EST Ely Lincoln [facility] PATHOLOGY ORDERABLES Final Result [facility] [address] [place] [address], * Pap Smear (07/22/2021 12:00 AM EST) Swab Ely Lincoln [facility] CYTOLOGY ORDERABLES F inal Result Performing Organization Address City/[facility]/ZIP Co de Phone Number [address], [place] [address] from Last 3 Months or Most Recently Relevant to Health Maintenance Insurance [facility] C3 Care Teams Polysomnographic Tech Relationship Specialty Start Date End Date Anastacia Donovan MD [address] [place] [phone] PCP - General Family Medicine 02/04/22
--- OUTSIDE RECORDS SUMMARY | 2025-03-16 14:32 | XMS_ITS | Clinical Summary ---
Author Organization [employer] [facility] ity Address [address] [place] [address] Care Team Providers Care Worship Leader Name Role Phone Unavailable Primary Care Provider [...] Cervical Cancer Screening: P ap Smear 2004 HIV Screening 09/04/2023 Hepatitis C Screening 09/04/2023 Social Influencers of Health Screening 09/04/2023 COVID-19 Vaccine ( - 2023-2 5 season) 2024 Depression Screening 08/10/2024 Influenza Vaccine (#1) 2025 HIB Vaccines Aged Out No longer eligi [...] 5 Years) and At-Risk Patients (6 to 49 Years) Aged Out No longer eligible b ased on patient's age to complete this topic RSV Immunization Patients Un clemente 20 months Aged Out No longer eligible b ased on patient's age to complete this topic Varicella Vaccines Aged Out No longer eligible based on patient's age to complete this topic
== END 2025-03-16 14:30 | disposition home or self-care (01) ==
LOC: HO.HMGCX 14:29
PROVIDERS: PCP Internal Medicine; Visit Provider Advanced Practice Midwife
DX: N94.6 Dysmenorrhea, unspecified (principal)
CPT/HCPCS: 76830; 76856

== ENCOUNTER → 2025-03-16 14:36 | Outpatient (BNV) | payer MEDICAID, SELFPAY | PROVIDERS: PCP Internal Medicine; Visit Provider Radiology Diagnostic Radiology | DX: N83.12 Corpus luteum cyst of left ovary (principal) | CPT/HCPCS: 76830; 76856 ==

== ENCOUNTER 2025-06-06 18:01 | Emergency (ER) | payer MEDICAID, SELFPAY ==
[2025-06-06 18:17] VITALS: BP 119/61; PULSE 99; RESP 18; TEMP 37.7; O2SAT 95; BMI 28.2
--- NOTE | 2025-06-06 18:43 | ED_ITS ---
HPI - General Adult General Chief complaint: Upper Respiratory Symptoms Stated complaint: Sore throat/Body aches Time Seen by Provider: 06/06/25 20:50 History of Present Illness ED Provider: Kyler SPAULDING narrative: The patient is a 39-year-old woman who comes to the emergency room with 2 days of illness. She has had a sore throat primarily. She has also had a cough and nasal congestion. She says she did a lot of coughing yesterday although her coughing is less bad today. She also says that her daughter was sick last week and was felt to have a viral illness. Related Data Home Medications ?Medication ?Instructions ?Recorded ?Confirmed cholecalciferol (vitamin D3) 50 50 mcg PO DAILY 04/19/23 mcg (2,000 unit) capsule ibuprofen 800 mg tablet 800 mg PO Q8H PRN mild pain 04/19/23 04/19/23 Previous Rx's ?Medication ?Instructions ?Recorded amoxicillin 875 mg-potassium 1 tab PO BID #14 tabs 08/01 clavulanate 125 mg tablet acetaminophen 500 mg capsule 1,000 mg (2 x 500 mg) PO Q8H PRN 06/06/25 fever or pain #14 caps ibuprofen 400 mg tablet 400 mg PO Q6H PRN pain #14 t abs 06/06/25 Allergies Allergy/AdvReac Type Severity Reaction Status Date / Time No Known Allergies Allergy Verified 06/06/25 18:20 Review of Systems Review of Systems: Yes all other systems are reviewed and are negative [facility] Social History Social History Household Members: Spouse and Children Housing: House Alcohol intake: former Patient Tobacco Use Status: Never used Tobacco Second Hand Smoke Exposure: No Substance Use Type: Marijuana Advance Directives: No Advance Directives Information Provided: No Do you have a plan to hurt others: No Plan service: No Physical Exam ED Vital Signs: Vital Signs - 24 hr 06/06/25 18:17 06/06/25 22:28 Temperature 100 F 100 F Pulse Rate 99 99 Respiratory Rate 18 18 Blood Pressure 119/61 119/61 Pulse Oximetry 95 95 Oxygen Delivery Method Room Air Room Air BMI result Body Mass Index 28.2 Const Other: The patient is awake and alert. She looks mildly unwell but not acutely toxic. Orientation/consciousness: patient oriented x3 HENRI Other: The posterior pharynx is fairly unremarkable. She seems to be handling her secretions easily. No significant voice change. No trismus. Eyes General: appearance normal, both eyes and all related structures Neck Other: No significant cervical adenopathy. She is moving her neck easily. Resp Effort & Inspection: normal respiratory effort Auscultation: clear to auscultation bilaterally Cardio Rate: regular rate Rhythm: regular rhythm Heart sounds: S1 normal heart sound present and S2 normal heart sound present Skin General skin exam: no rashes or lesions noted Neuro General: patient oriented x3, gait normal, tone normal, moves all extremities, no focal motor deficits and CN's II-XI intact bilaterally Course Course Course Narrative: RME: 39-year-old female presents to ED for body aches sore throat cough nasal congestion x2 days. Patient states her daughter was sick 1st not she is having symptoms. Swabs ordered Medications Administered Discontinued Medications Generic Name Dose Route Start Last Admin Trade Name Freq PRN Reason Stop Dose Admin Acetaminophen 975 mg 06/06/25 21:31 06/06/25 21:49 Acetaminophen 325 Mg Tablet PO 06/06/25 21:32 975 mg ONCE ONE Administration Ibuprofen 400 mg 06/06/25 21:31 06/06/25 21:50 Ibuprofen 400 Mg Tablet PO 06/06/25 21:32 400 mg ONCE ONE Administration Medical Decision Making Medical Decision Making [facility] Narrative: The patient presents with a 2 day history of sore throat. She also describes having a runny nose and a cough. She says she was coughing more yesterday than today. She does not seem short of breath. She had serology sent for strep throat, COVID, and influenza. These are all negative. I took the patient's temperature when I examined her. Her temperature was 100.2 degrees. The patient says that her daughter was sick with similar symptoms last week. The daughter was treated as if she had a viral illness. I suspect that is the case with the patient today. The patient will be reassured that this seems to be a viral illness and that she should use ibuprofen and acetaminophen. Prescriptions were sent for both these medications. She should stay in touch with her PCP or return if worse. Lab Data Labs: Lab Results 06/06/25 Range/Units 18:34 COVID-19 ([facility]) Negative (Negative) COVID-19 Clin Com See Note Influenza Type A ([facility]) Negative (Negative) Influenza Type B (BUT[facility]) Negative (Negative) Influenza A & B Note See Note S. pyogenes GrpA BUTCH Negative (Negative) Discharge Plan Discharge Clinical Impression: Acute viral pharyngitis Patient Disposition: Home, Self-Care Instructions: Pharyngitis (ED) Additional Instructions: You have tested negative for strep throat. You have also tested negative for COVID and influenza. I think this is a viral illness that will need to run its own course. I expect you should start to feel better in a few days. In the meantime I would recommend using ibuprofen and acetaminophen as needed for discomfort. I have sent prescriptions for these medications to your pharmacy. Please use these medications as prescribed. Please contact your regular doctor for additional advice as needed. If you feel significantly worse please return to the emergency department for additional evaluation. Prescriptions: New ibuprofen 400 mg tablet 400 mg PO Q6H PRN (Reason: pain) Qty: 14 0RF acetaminophen 500 mg capsule 1,000 mg PO Q8H PRN (Reason: fever or pain) Qty: 14 0RF No Action ibuprofen 800 mg tablet 800 mg PO Q8H PRN (Reason: mild pain) cholecalciferol (vitamin D3) 50 mcg (2,000 unit) capsule 50 mcg PO DAILY amoxicillin-pot clavulanate 875-125 mg Tablet 1 tab PO BID Qty: 14 0RF Referrals: Anastacia Donovan MD [Primary Care Provider, Internal Medicine] Interventions: ED Discharge Assessment Last Done: 06/06/25 22:28 Discharge Date/Time: 06/06/25 22:28 Print Language: Singaporean
[2025-06-06 18:59] LABS: COVID-19 Test Negative (Negative); IDNOW Serial# 08D9AD1C; IDNOW Serial# 55D5AD1C; IDNOW Serial# 58CA691E; Influenza B2 Negative (Negative); Strep A Nucleic Acid Negative (Negative)
--- OUTSIDE RECORDS SUMMARY | 2025-06-06 20:29 | XMS_ITS | Encounter Summary ---
Author Organization [employer] Address [address] [place] [address] [address] [place] [address] Care Team Providers Care Senior Health Physics Technician Name Role Phone Anastacia Donovan MD Primary Care Provide r Encounter Details Date Type Department Care Team (Late Contact Info) Description 09/09/2022 Abstract [facility] [address] [place] [phone] Ely Lincoln CNM [address] [place] [address] [phone] Social History Tobacco Use Types Packs/Day Years [...] Care Team (Late st Contact Info) Description 06/08/2025 9:15 AM EDT Office Visit [facility] [address] [place] [phone] Anastacia Donovan MD [address] [place] [address] [phone] documented as of this encounter Visit Diagnoses Not on filedocumented in this encounter Care Teams Senior Health Physics Technician Relationship Specialty Start Date End Date Anastacia Donovan MD [address] [place] [phone] PCP - General Family Medicine 02/04/22 documented as of this encounter
--- OUTSIDE RECORDS SUMMARY | 2025-06-06 20:29 | XMS_ITS | Clinical Summary ---
Author Organization [employer] Address [address] [place] [address] 7[address] [place] [address] Care Team Providers Care Mash Preparatory Operator Name Role Phone Anastacia Donovan MD Primary [...] MAX 2/24 HOURS. 9 tablet 09/21/19 Active GaviLAX 17 GM/SCOOP powderIndication s:Other constipation TAKE 17 G BY MOUTH ONCE PER DAY. DISSOLVE WITH WATER PRIOR TO TAKING 510 g 1 03/06/20 Active norethindrone (Micronor) 0.35 MG tabletIndication s:Dysmenorrhea TAKE 1 TABLET BY MOUTH EVERY DAY 84 tablet 2 05/17/20 Active norethindrone (Micronor) 0.35 MG tabletIndication s:Dysmenorrhea TAKE 1 TABLET BY MOUTH EVERY DAY 84 tablet 02/14/20 25 025 Discontinued Active Problems Problem Noted [...] Encounters Date Type Department Care Team Description 06/01/2025 Patient Outreach [facility] MED & PEDS [address] [place] [address] Anastacia Donovan MD Pre-visit Planning (SDOH negative, Tobacco screening negative. ) 05/16/2025 Refill [facility] MEDICINE [address] [place], [place] [phone] Donna Nelson CNM Dysmenorrhea 03/20/2025 Results Follow-Up [facility] MEDICINE [address] [place], [place] [phone] Donna Nelson CNM US Pelvis Transvaginal from Last 3 Months Immunizations Immunization Administration [...] housing situation today? I have kuldip alonso 06/01/[address] you li ve. Do you have problems with any of the following? None of the above 06/01/2025 Food Insecurity Answer Date Recorded Within the past 12 months, y ou worried that your food would run out before you got money to buy more: Never True 06/01/2025 Within the past 12 months,th e food you bought just didn't last and you didn't have enough money to get more: Never True Transportation Answer Date Recorded In the past 12 months, has l ack of transportation kept you from medical appts, meetings, work or from getting things needed for daily living? No 06/01/2025 Utilities Answer Date Recorded In the past 12 months, has t he electric, gas, oil or water company threatened to shut off services in your home? No 06/01/2025 Depression Answer Date Recorded Patient Health Questionnaire-2 Score 0 12/02/2024 Internet Access Answer Date Recorded Internet Access Q1 Yes 06/01/2025 Internet Access Q2 Not on file 06/01/2025 Comments No Intention Date Recorded No desire [...] 02/16/2025 1:42 PM EDT Plan of Treatment Upcoming Encounters Date Type Department Care Team (Late st Contact Info) Description 06/08/2025 9:15 AM EDT Office Visit [facility] MEDICINE [address] [place], [place] [phone] Anastacia Donovan MD [address] [place], [place] [phone] Health Maintenance Due Date Last Done Comments Alcohol/Substance Use Screening 1995 HPV Vaccines (1 - 3-dose series) 1998 COVID-19 Vaccine ( season) 2025 09/11/2023, 10/19/2021, 09/21/2021 Influenza Vaccine (#1) 2025 , 07/22/2021, 08/16/2016, Additional history exists Mammogram 09/28/2025 09/28/2024, 09/23/2023 Depression Screening 12/02/2025 12/02/2024, 12/03/19 Disability Screening 12/02/2025 12/02/2024 Family Planning (PISQ) 02/16/2026 02/16/2025 Tobacco Screening 02/16/2026 02/16/2025 SDOH Screening 06/01/2026 06/01/2025 Cervical Cancer Screening 07/22/2026 HPV/Cotest 07/22/2026 07/22/2021 [...] Procedure Name Priority Date/Time Associated Diagnosis Comments COVID-19 ID NOW ([facility]) Routine 06/06/2025 6:34 PM EDT INFLUENZA A B2 ID NOW (WETZEL) Routine 06/06/2025 6:34 PM EDT STREP A NUCLEIC ACID Routine 06/06/2025 6:34 PM EDT US PELVIS TRANSVAGINAL Urgent 2:39 PM EDT Dysmenorrhea BI MAMMOGRAM SCREENING TOMOSYNTHESIS BILATERAL Routine 09/28/2024 [...] Recently Relevant to Health Maintenance Results * Influenza A B2 ID NOW ([facility]) (06/06/2025 6:34 PM EDT) IDNOW SERIAL# [id number] [facility] Influenza A Negative Negative [facility] Influenza B2 Negative Negative [facility] Influenza A B2 Note See Note [facility] Comment:The Wetzel ID NOW In fluenza A B2 test is used for thequalitative detection of influenza A and B from patientswith signs and symptoms of respiratory infection.Negative results do not preclude influenza virus infectionand should not be used as the sole basis for diagnosis,treatment or other patient management decisions.There is a risk of false negative results due to thepresence of variants in the viral targets of the assay, lowlevels of virus in the specimen and co- infection withRespiratory Syncytial Virus. 06/06/2025 6:34 PM EDT 06/06/2025 6:40 PM EDT us Generic External Data Provider LAB MICROBIOLOGY - GENERAL ORDERABLES Final Result [facility] [address] [place] [phone] * Strep A Nucleic Acid (06/06/2025 6:34 PM EDT) IDNOW SERIAL# [id number] [facility] Strep A Nucleic Acid Negative Negative [facility] Comment:All test results mus t be correlated with clinical findings.This test has not been evaluated for monitoring treatment ofinfection.Additional follow-up testing using the culture method isrequired if the result is negative and clinical symptomspersist, or in the event of an acute rheumatic feveroutbreak. 06/06/2025 6:34 PM EDT 06/06/2025 6:40 PM EDT us Generic External Data Provider LAB MICROBIOLOGY - GENERAL ORDERABLES Final Result Performing Organization Address [facility] Co de Phone Number [facility] [address] [place] [phone] * COVID-19 ID NOW ([facility]) (06/06/2025 6:34 PM EDT) IDNOW SERIAL# [id number] [facility] COVID-19 TEST Negative Negative [facility] COVID-19 NOTE See Note [facility] Comment: Results are for the identification of SARS-CoV2 RNA. TheSARS-CoV2 RNA is generally detectable in respiratory samplesduring the acute phase of infection. Positive results areindicative of the presence of SARS-CoV-2 RNA; clinicalcorrelation with patient history and other diagnosticinformation is necessary to determine patient infectionstatus. Positive results do not rule out bacterial infectionor co- infection with other viruses.Testing facilities within the [facility] and [facility] are required to report all positive results tothe appropriate public health authorities.Negative results should be treated as presumptive and, ifinconsistent with clinical signs and symptoms or necessaryfor patient management, should be tested with differentauthorized or cleared molecular tests. Negative results donot preclude SARS-CoV2 RNA infection and should not be usedas the sole basis for patient management decisions. Negativeresults should be considered in the context of a patient'srecent exposures, history and the presence of clinical signsand symptoms consistent with COVID-19.This test has been authorized by the FDA under an EmergencyUse Authorization (EUA) for use by authorized laboratories.Testing performed on the Wetzel ID NOW utilizing NAAT. 06/06/2025 6:34 PM EDT 06/06/2025 6:40 PM EDT us Generic External Data Provider LAB MOLECULAR SONIA GNOSTICS ORDERABLES Final Result Performing Organization Address [facility] Co de Phone Number [facility] [address] [place] [phone] * US Pelvis Transvaginal (03/16/2025 2:39 PM EDT) Anatomical Region Laterality Modality Pelvis Ultrasound 03/16/2025 2:39 PM EDT Narrative 03/16/2025 3:15 PM EDT [facility] [place] [address] Ultrasound Report Signed Patient: Daija Crystal MR#: [id number] : 1985 Acct:[id number] Age/Sex: 39 / F ADM Date: 03/16/25 Loc: HO.HMGCX Attending Dr: Donna Nelson CNM Ordering Physician: DONNA NELSON CNM Date of Service: 03/16/25 Procedure(s): US pelvic and transvaginal Accession Number(s): [id number] cc: Anastacia Donovan MD; DONNA NELSON CNM EXAMINATION: US PELVIS CLINICAL INFORMATION: Dysmenorrhea COMPARISON: 09/26/2022. TECHNIQUE: Ultrasound of the pelvis is performed using both transabdominal and transvaginal transducers along with Doppler. Transvaginal imaging is performed due to inadequate visualization transabdominally. FINDINGS: Uterus: The uterus is anteverted and measures 8.1 x 4.1 x 6.0 cm. The cervix is normal with small dilatation cysts. The double wall endometrial thickness is 10 mm. The uterus is smooth in contour and has normal myometrial echogenicity. No visible fibroid. Adnexa: Both ovaries are visualized. There is normal color flow to the adnexa. There is no ovarian torsion. There is no pelvic ascites or fluid collection. There are no adnexal masses. Right ovary measures 3.2 x 1.5 x 2.4 cm. Volume = 5.9 mL. Normal sonographic appearance. Left ovary measures 2.2 x 2.6 x 2.6 cm. Volume = 7.8 mL normal sonographic appearance. Corpus luteal cyst measuring 1.0 x 1.0 x 0.9 cm. US/US pelvic and transvaginal IMPRESSION: 1. Normal pelvic ultrasound. Electronically signed by: Filiberto Marie MD 03/16/2025 03:12 PM EDT Dictated By: Filiberto Marie MD Signed By: <Electronically signed by Filiberto Marie MD in OV> 03/16/25 1512 DD/ 1439 TD/TT: 03/16/25 1457 Retort Or Condenser Press Operator: Procedure Note Donotuseinterpreter, Image - 03/16/2025 [facility] [address] [place] [address] [place] [address] Ultrasound Report Signed Patient: Katelynn Crystal#: [id number] : 1985Acct:[id number] Age/Sex: 39 / FADM Date: 03/16/25 Loc: HO.HMGCX Attending Dr: Donna Nelson CNM Ordering Physician: DONNA NELSON CNM Date of Service: 03/16/25 Procedure(s): US pelvic and transvaginal Accession Number(s): [id number] cc: Anastacia Donovan MD; DONNA NELSON CNM EXAMINATION: US PELVIS CLINICAL INFORMATION: Dysmenorrhea COMPARISON: 09/26/2022. TECHNIQUE: Ultrasound of the pelvis is performed using both transabdominal and transvaginal transducers along with Doppler. Transvaginal imaging is performed due to inadequate visualization transabdominally. FINDINGS: Uterus: The uterus is anteverted and measures 8.1 x 4.1 x 6.0 cm. The cervix is normal with small dilatation cysts. The double wall endometrial thickness is 10 mm. The uterus is smooth in contour and has normal myometrial echogenicity. No visible fibroid. Adnexa: Both ovaries are visualized. There is normal color flow to the adnexa. There is no ovarian torsion. There is no pelvic ascites or fluid collection. There are no adnexal masses. Right ovary measures 3.2 x 1.5 x 2.4 cm. Volume = 5.9 mL. Normal sonographic appearance. Left ovary measures 2.2 x 2.6 x 2.6 cm. Volume = 7.8 mL normal sonographic appearance. Corpus luteal cyst measuring 1.0 x 1.0 x 0.9 cm. US/US pelvic and transvaginal IMPRESSION: 1. Normal pelvic ultrasound. Electronically signed by: Filibetro Marie MD 03/16/2025 03:12 PM EDT Dictated By: Filiberto Marie MD Signed By: <Electronically signed by Filiberto Marie MD in OV> 03/16/25 1512 DD/ 1439 TD/TT: 03/16/25 1457 Retort Or Condenser Press Operator: us Donna Nelson CNM IMG US PROCEDURES Final R esult * BI Mammogram Screening Tomosynthesis Bilateral (09/28/2024 2:05 PM EST) Anatomical Region Laterality Modality Breast Bilateral Mammography 09/28/2024 2:05 PM EST Narrative 10/04/2024 12:42 PM EST [facility] [place] [address] Mammography Report Signed Patient: Daija Crystal MR#: [id number] : 1985 Acct:[id number] Age/Sex: 39 / F ADM Date: 09/28/24 Loc: HO.MAMMO Attending Dr: Anastacia Bojorquez MD Ordering Physician: Anastacia Donovan MD Results: 1Negative Date of Service: 09/28/24 Follow Up: 1 Year From [facility] Mammogram Procedure(s): MM tomosynthesis screening BI Accession Number(s): [id number] cc: Anastacia Donovan MD EXAMINATION: MM SCREENING [...] 10/04/24 1240 DD/ 1405 TD/TT: 09/28/24 1426 Retort Or Condenser Press Operator: Procedure Note Donotuseinterpreter, Image - 10/04/[facility] [address] [place] [address] Mammography Report Signed Patient: Katelynn Crystal#: [id number] : 1985Acct:[id number] Age/Sex: 39 / FADM Date: 09/28/24 Loc: HO.MAMMO Attending Dr: Anastacia Bojorquez MD Ordering Physician: Anastacia Donovan MDResults: 1Negative Date of Service: 09/28/24Follow Up: 1 Year From Orig inal Mammogram Procedure(s): MM tomosynthesis screening BI Accession Number(s): [id number] cc: Anastacia Donovan MD EXAMINATION: MM SCREENING [...] 10/04/24 1240 DD/ 1405 TD/TT: 09/28/24 1426 Retort Or Condenser Press Operator: Anastacia Bojorquez MD IMG BI PROCEDURES Fin al Result * Hepatitis C Antibody with Reflex to HCV, RNA, Quantitative, Real-Time PCR (10/05/2023 9:46 AM EST) Pathologist [facility] [place] Hepatitis C Antibody Nonreactive Nonreactive [facility] Comment:Antibodies to HCV no t detected; does not exclude early acuteHCV infection. Blood Venous blood specimen / Unknown 10/05/2023 9:46 AM EST 10/05/2023 11:20 AM EST Anastacia Bojorquez MD LAB BLOOD ORDERABLES Final Result [facility] [address] [place] [phone] * HIV-1/2 Antigen and Antibodies, Fourth Generation, with Reflexes (10/05/2023 9:46 AM EST) Pathologist [facility] [place] HIV AB/AG Nonreactive Nonreactive [facility] Comment:HIV-1 p24 Ag and/or HIV-1/HIV-2 Ab not detected.A test result that is nonreactive does not exclude thepossibility of exposure to or infection with HIV-1 and/orHIV-2. Nonreactive results in this assay for individualswith prior exposure to HIV-1 and/or HIV-2 may be due toantigen and antibody levels that are below the limit ofdetection of this assay.The [employer] HIV Ag/Ab Combo assay result andsupplemental assay results should be interpreted inconjunction with the patient's clinical presentation,history and other laboratory results. If the results areinconsistent with clinical evidence, additional testing issuggested to confirm the result. Blood Venous blood specimen / Unknown 10/05/2023 9:46 AM EST 10/05/2023 11:20 AM EST Anastacia Bojorquez MD LAB BLOOD ORDERABLES Final Result [facility] [address] [place] [phone] * THINPREP TIS PAP AND HPV mRNA E6/E7 WITH REFLEX TO HPV 16,18/45 (07/22/2021 10:07 AM EST) Clinical Information: None given [employer] [facility] COMMENT SEE COMMENT [facility] [...] has been evaluated with computer assisted technology. [employer] Newspaper Subscription Solicitor: SEE COMMENT [facility] Comment: CXP, CT(ASCP) CT screening location: [place] [address] HPV nRNA E6/E7 Not Detected Not Detected [employer] Comment: Methodology: Genetics Teacher-Mediated Amplification This assay detects E6/E7 viral messenger RNA (mRNA) from 14 high-risk HPV types (16,18,31,33,35,39,45,51,52,56,58,59,66,68). The analytical performance characteristics of this assay have been determined by [employer]. The modifications have not been cleared or approved by the FDA. This assay has been validated pursuant to the CLIA regulations and is used for clinical purposes. For additional information, please refer to http://education.Sossee.Igloo Vision/faq/OXD368f7 (This link if provided for information/ educational purposes only.) Interpretation/Re sult: Negative for intraepithelial lesion or malignancy. [employer] [facility] LMP: 06/30/21 [facility] Prev. BX: NONE GIVEN [facility] N [facility] Prev. PAP: NONE GIVEN [facility] ON LAB SYSTEM SOURCE: None given [facility] Statement Of Adequacy: SEE COMMENT [facility] Comment: Satisfactory for evaluation. Endocervical/transformation zone component present. 07/22/2021 10:0 7 AM EST Donna VELASQUEZ LAB PATHOLOGY ORDERABLES Final Result [facility] [address] [place] [phone], * Pap Smear (07/22/2021 12:00 AM EST) Swab Donna VELASQUEZ LAB CYTOLOGY ORDERABLES F inal Result Performing Organization Address [facility] Co de Phone Number [address], [place] [address] from Last 3 Months or Most Recently Relevant to Health Maintenance [place] [address] [address] C3 Care Teams Mash Preparatory Operator Relationship Specialty Start Date End Date Anastacia Donovan MD [address] [place] [phone] PCP - General Family Medicine 02/04/22
--- OUTSIDE RECORDS SUMMARY | 2025-06-06 20:29 | XMS_ITS | Patient Health Record ---
Author Organization [facility] Address [address] [place] [address] Care Team Providers Care Engineer Chief Name Role Phone NONE, NONE Primary Care Provider Jermaine Barrow Jr Unavailable Reason For Referral No Information Plan Of Treatment No Information Insurance Providers Payer Name Payer Address Payer Phone Subscriber Number Group Number Insured Name Patient Relationship to Insured Coverage Start Date Coverage End Date MEDICAID OF [facility] [address] [place] [phone] [id number] KEISHA GOLDMAN Self - patient is the insured
--- OUTSIDE RECORDS SUMMARY | 2025-06-06 20:29 | XMS_ITS | Clinical Summary ---
Author Organization [facility] Address [address] [place] [address] Care Team Providers Care Netbackup Engineer Name Role Phone Unavailable Primary Care Provider [...] Cervical Cancer Screening: P ap Smear 2004 HPV Vaccines (1 - 3-dose SCD M series) 2010 HIV Screening 09/04/2023 Hepatitis C Screening 09/04/2023 Social Influencers of Health Screening 09/04/2023 Depression Screening 08/10/2024 COVID-19 Vaccine (1 - 2023-2 5 season) 2025 Influenza Vaccine (#1) 2025 RSV Immunization Adult Patie nts (1 - 1-dose 75+ series) 2058 HIB Vaccines Aged Out No longer eligi [...]
--- OUTSIDE RECORDS SUMMARY | 2025-06-06 20:29 | XMS_ITS | Encounter Summary ---
Author Organization [employer] Address [address] [facility] [address] [place] [address] Care Team Providers Care Chief Radiologic Technologist Name Role Phone Anastacia Donovan MD Primary Care Provide r Reason for Visit * Reason Comments Pre-visit Planning SDOH negative, Tobac co screening negative. Encounter Details Date Type Department Care Team ([facility] Contact Info) Description 06/01/2025 Patient Outreach [facility] MED & PEDS [address] [place] [address] Anastacia Donovan MD [address] [place] [address] Pre-visit Planning (SDOH negative, Tobacco screening negative. ) Social History Tobacco Use Types Packs/Day Years [...] Q2 Not on file 06/01/2025 Comments No Sex and Gender Information Value Date Recorded Sex Assigned at Female 06/09/2022 10:18 AM EDT Legal Sex Female 10:18 AM EDT Gender Identity Female 06/09/2022 10:18 AM EDT Sexual Orientation Don't know 06/09/2022 10 :18 AM EDT documented as of this encounter Progress Notes * Tomasa Vail - 06/01/2025 2:25 PM EDT CC Tomasa Manzano placed successful outbound call to patient for pre-visit planning. Patient name and confirmed. Patient confirms appt date and time, and has transportation arrangements. Biggest concern for appointment at this time is no concerns. Appropriate screenings completed in anticipation ofappointment. documented in this encounter Plan of Treatment Upcoming Encounters Date Type Department Care Team (Late st Contact Info) Description 06/08/2025 9:15 AM EDT Office Visit [facility] MEDICINE [address] [place] [address] Anastacia Donovan MD [address] [place] [address] documented as of this encounter Visit Diagnoses Not on filedocumented in this encounter Additional Health Concerns Assessment Noted Time PHQ-9 Depression Total Score: 0 12/03/19 9:24 AM EDT documented as of this encounter Care Teams Chief Radiologic Technologist Relationship Specialty Start Date End Date Anastacia Donovan MD [address] [place] [address] PCP - General Family Medicine 02/04/22 documented as of this encounter
--- OUTSIDE RECORDS SUMMARY | 2025-06-06 20:29 | XMS_ITS | Encounter Summary ---
Author Organization [employer] Address [address] [facility] [address] [place] [address] Care Team Providers Care Operations Officer Trust Department Name Role Phone Anastacia Donovan MD Primary Care Provide r Reason for Visit * Reason Onset Date Comments Med Refill 07/26/2024 Encounter Details Date Type Department Care Team ([facility] st Contact Info) Description 07/26/2024 Refill [facility] MEDICINE [address] [place] [address] Anastacia Donovan MD [address] [place] [address] Migraine with aura and without status migrainosus, [...] Description 06/08/2025 9:15 AM EDT Office Visit [facility] MEDICINE [address] [place] [address] Anastacia Donovan MD [address] [place] [address] documented as of this encounter Visit Diagnoses Diagnosis Migraine with aura and without status migrainosus, not intractable documented in this encounter Additional Health Concerns Assessment Noted Time PHQ-9 Depression Total Score: 0 09/11/19 24 2:04 PM EST documented as of this encounter Care Teams Operations Officer Trust Department Relationship Specialty Start Date End Date Anastacia Donovan MD [address] [place] [address] PCP - General Family Medicine 02/04/22 documented as of this encounter
[2025-06-06 22:28] VITALS: BP 119/61; PULSE 99; RESP 18; TEMP 37.7; O2SAT 95
== END 2025-06-06 22:28 | disposition home or self-care (01) ==
PROVIDERS: Physician Assistant; Emergency Provider Emergency Medicine; PCP Internal Medicine
DX: J02.9 Acute pharyngitis, unspecified (principal); Z03.818 Encounter for observation for suspected exposure to other biological agents ruled out; R05.9 Cough, unspecified
CPT/HCPCS: 87502; 87635; 87651; 99283